=== PATIENT | female | born 1975 | race Caucasian/White ===

== ENCOUNTER 2016-09-12 07:47 | Emergency (ER) | payer OTHER ==
[~2016-09-12] VITALS: Ht 165.1 cm; Wt 146.6 kg
[~2016-09-12 07:47] MED LIST: ALBU1AER9 INH; DPPI150 INJ; EFFSR75 PO; LORA10TA5 PO
[2016-09-12 07:58] VITALS: TEMP 36.6; Ht 165.1 cm; Wt 146.6 kg
[2016-09-12] MEDS ORDERED: KETOROLAC TROMETHAMINE 30 MG/ML VIAL IV STA (08:08)
[2016-09-12] MEDS ORDERED: ONDANSETRON INJ 2 MG/ML 2 ML VIAL IV STA (08:08)
[2016-09-12] MEDS ORDERED: SODIUM CHLORIDE 0.9% 1000ML 1,000 ML IV STA (08:08)
[2016-09-12] MEDS ORDERED: SODIUM CHLORIDE 0.9% 1000ML 2,000 ML IV STA (08:08)
[2016-09-12] MEDS ORDERED: MoRPHine SULFATE 10 MG/ML CARP/VIAL IV STA (08:08)
[2016-09-12 08:43] LABS: BASO % 0.1 %; BASO ABS # 0.01 K/uL (0-0.2); COMPLETE YES; EOS % 1.5 %; HEMATOCRIT 35.4 % (37-47); IG% 0.1 %; LYMPH ABS # 1.94 K/uL (1.2-3.4); MEAN CELL VOLUME 86.3 fL (80-100); MEAN CORPUSCULAR HGB CONC 34.7 g/dl (32-36); MEAN PLATELET VOLUME 10.9 fL (7.4-10.4); MONO % 4.3 %; PLATELET COUNT 210 K/uL (130-400); WHITE BLOOD COUNT 6.68 K/uL (4.8-10.8)
[2016-09-12 08:53] LABS: INR 0.9 (0.9-1.1); PROTHROMBIN TIME (PATIENT) 10.1 SECONDS (9.0-12.0)
[2016-09-12 09:03] LABS: BUN/CREATININE RATIO 17.1 (10-20); CALCIUM 8.3 mg/dl (8.5-10.1); CREATININE 0.7 mg/dl (0.60-1.20); POTASSIUM 3.5 mmol/L (3.5-5.1); PREG INTERNAL NEGATIVE QC NEG CLEAR BACKGROUND; PREG INTERNAL POSITIVE QC POS CONTROL LINE
[2016-09-12 09:06] LABS: ALB/GLOB RATIO 0.9 (0.9-2)
--- NOTE | 2016-09-12 09:30 | DIAGNOSTIC IMAGING REPORT ---
ULTRASOUND OF THE PELVIS CLINICAL HISTORY: Irregular menses. Heavy vaginal bleeding. COMPARISON STUDY: Pelvic CT dated 01/03/2013. TECHNIQUE: Real-time, grayscale, and color flow sonography of the pelvis is performed both transabdominally and endovaginally. Images are reviewed in the transverse and longitudinal planes. Examination is significantly degraded by large body habitus. FINDINGS: Uterus: The uterus is normal in size and echotexture, measuring 8.5 x 4.7 x 5.9 cm. A 10 mm nabothian cyst is identified in the cervix. Fluid is seen in the endocervical canal. Endometrium: The endometrium is normal in appearance, and the endometrial stripe is normal in thickness measuring up to 1.0 cm. Ovaries: The right ovary is normal in appearance, measuring 3.2 x 3.0 x 3.2 cm. The left ovary was not visualized A dominant follicle in the right ovary measures 2.8 cm. Normal Doppler waveforms are shown within the right ovary. Pelvis: There is no free fluid in the cul-de-sac. No concerning adnexal lesion is seen. IMPRESSION: 1. Unremarkable sonographic assessment of the uterus and right ovary. 2. The left ovary was not visualized. 3. There is nonspecific fluid noted in the endocervical canal. Correlation with physical examination is recommended. Electronically signed by: Srinivas Campuzano M.D. 09/12/2016 9:28 AM Dictated Date/Time: 09/12/2016 9:24 AM
[2016-09-12] MEDS ORDERED: NORETHINDRONE ACETATE 5 MG TAB PO STA (10:26)
[2016-09-12] MEDS ORDERED: HYDR-5688 PO (10:32)
[2016-09-12] MEDS ORDERED: NORE5TAB5 PO ×2 (10:32→11:15)
--- NOTE | 2016-09-12 10:37 | EMERGENCY ROOM VISIT NOTE ---
History First contact with patient: 08:06 Chief Complaint: VAGINAL BLEEDING Stated Complaint: VERY HEAVY PERIOD, WOKE UP IN A POOL OF BLOOD History of Present Illness Patient is a Ab2 41-year-old white female patient who presents emergency department for evaluation of heavy, irregular menstrual bleeding x 1 month. Patient has a history of irregular menses. She is status post C-sections 3, and D&C 2 in the past. She reports that she has had problems with irregular menses throughout her life. They have been regular for the last 4 months, but she reports that she got 2 menstrual periods in July, and 3 menstrual periods in August. She started bleeding about 9 days ago. It has progressively gotten worse with more cramping and heavier bleeding. She states that last night she felt like she was in labor, she was doubled over with cramps. The flow has been steadily increasing over the last 4 days. She states that she is saturating a pad in about 15 minutes and has been changing it at least 4 times per hour. She has been taking ibuprofen. She presently rates her cramping 910. She called the on-call concrete gun operator who advised she could either make an appointment in the office or present to the emergency department. She states that she saturated her bed this morning, therefore it prompted her to come to the emergency department. She denies that she could be although denies taking a test. She did feel a little lightheaded last night when the pain was very severe. She is not taking any blood thinning medications. Review of Systems Review of systems as per HPI. All other systems reviewed were negative. 10 systems reviewed. Past Medical/Surgical History Medical Problems: (1) Arm paresthesia, right (2) Asthma (3) Back pain (4) Blood clots (5) Dyspnea (6) Lumbar back pain (7) Morbid Obesity (8) Rash and nonspecific skin eruption (9) Stroke (10) Upper respiratory tract infection Surgical Problems: (1) Appendectomy (2) H/O section (3) History of dilatation and curettage Electronic medical records are reviewed and summarized as above/below. See Problem List. Family History Diabetes mellitus Gallbladder disease Heart disease Hypertension Social History Smoking Status: Never Smoker Alcohol Use: none Drug Use: none Marital Status: Housing Status: lives with family Occupation Status: employed, student Current/Historical Medications Scheduled Norethindrone (Aygestin), 5 MG PO DIRECTED Venlafaxine Hcl (Effexor Extended Rel), 75 MG PO DAILY Scheduled PRN Albuterol (Proair Hfa), 2 PUFFS INH Q6H PRN for SOB/Wheezing Hydrocodone/Acetaminophen 5MG/325MG (Hampton 5MG/325MG), 1-2 TABLETS PO Q4 PRN for Pain Loratadine (Claritin), 10 MG PO DAILY PRN for ALLERGIC REACTION Allergies Coded Allergies: Penicillins (Unverified Allergy, Mild, 09/12/16) Physical Exam Vital Signs Date Time Temp Pulse Resp B/P Pulse Ox O2 Delivery O2 Flow Rate FiO2 09/12/16 10:47 70 18 112/76 98 09/12/16 09:37 57 18 117/68 98 Room Air 09/12/16 09:36 72 09/12/16 07:58 36.6 76 18 148/87 97 Room Air Physical Exam CONSTITUTIONAL: Patient is a morbidly obese 41-year-old white female who is awake and alert and in no acute distress. Her vital signs are stable. EYES: Pupils equal, round, reactive to light and accommodation. EOMs intact without nystagmus. Sclera are anicteric. ENT: Tympanic membranes intact, with normal landmarks. External canals are clear. Oral and nasopharynx are clear. Mucous membranes are moist, no lesions , tongue and gums appear normal. NECK: No bruits auscultated. Supple without lymphadenopathy. No thyromegaly. No meningeal signs. Full active range of motion without discomfort. CARDIOVASCULAR: Regular rate and rhythm, with normal S1 and S2, no murmur or gallop or rub is heard. No carotid bruits auscultated. No JVD. Peripheral pulses easily palpable. RESPIRATORY: Breath sounds equal and clear to auscultation without wheezes, rales, or rhonchi heard. Full and equal chest expansion without accessory muscle use or retractions. ABDOMEN: Soft, obese, slightly tender in the lower abdomen, no guarding, rebound or rigidity. Exam is difficult due to the patient's large body habitus. Bowel sounds normo-active. Pelvic Exam: Genitalia are normal Vagina is clean. Dark blood noted. Cervix is mildly dilated with dark clots, no active bleeding Bimanual exam not performed. INTEGUMENTARY: No lesions or rash, normal skin turgor. LYMPH: No lymphadenopathy. Medical Decision & Procedures ER Provider Diagnostic Interpretation: ULTRASOUND OF THE PELVIS CLINICAL HISTORY: Irregular menses. Heavy vaginal bleeding. COMPARISON STUDY: Pelvic CT dated 01/03/2013. TECHNIQUE: Real-time, grayscale, and color flow sonography of the pelvis is performed both transabdominally and endovaginally. Images are reviewed in the transverse and longitudinal planes. Examination is significantly degraded by large body habitus. FINDINGS: Uterus: The uterus is normal in size and echotexture, measuring 8.5 x 4.7 x 5.9 cm. A 10 mm nabothian cyst is identified in the cervix. Fluid is seen in the endocervical canal. Endometrium: The endometrium is normal in appearance, and the endometrial stripe is normal in thickness measuring up to 1.0 cm. Ovaries: The right ovary is normal in appearance, measuring 3.2 x 3.0 x 3.2 cm. The left ovary was not visualized A dominant follicle in the right ovary measures 2.8 cm. Normal Doppler waveforms are shown within the right ovary. Pelvis: There is no free fluid in the cul-de-sac. No concerning adnexal lesion is seen. IMPRESSION: 1. Unremarkable sonographic assessment of the uterus and right ovary. 2. The left ovary was not visualized. 3. There is nonspecific fluid noted in the endocervical canal. Correlation with physical examination is recommended. Laboratory Results 09/12/16 08:30 Red Blood Count 4.10, Mean Corpuscular Volume 86.3, Mean Corpuscular Hemoglobin 30.0, Mean Corpuscular Hemoglobin Concent 34.7, Mean Platelet Volume 10.9, Neutrophils (%) (Auto) 65.0, Lymphocytes (%) (Auto) 29.0, Monocytes (%) (Auto) 4.3, Eosinophils (%) (Auto) 1.5, Basophils (%) (Auto) 0.1, Neutrophils # (Auto) 4.33, Lymphocytes # (Auto) 1.94, Monocytes # (Auto) 0.29, Eosinophils # (Auto) 0.10, Basophils # (Auto) 0.01 09/12/16 08:30 Test 09/12/16 08:30 09/12/16 10:20 White Blood Count 6.68 K/uL (4.8-10.8) Red Blood Count 4.10 M/uL (4.2-5.4) Hemoglobin 12.3 g/dL (12.0-16.0) Hematocrit 35.4 % (37-47) Mean Corpuscular Volume 86.3 fL (80-100) Mean Corpuscular Hemoglobin 30.0 pg (25-34) Mean Corpuscular Hemoglobin Concent 34.7 g/dl (32-36) Platelet Count 210 K/uL (130-400) Mean Platelet Volume 10.9 fL (7.4-10.4) Neutrophils (%) (Auto) 65.0 % Lymphocytes (%) (Auto) 29.0 % Monocytes (%) (Auto) 4.3 % Eosinophils (%) (Auto) 1.5 % Basophils (%) (Auto) 0.1 % Neutrophils # (Auto) 4.33 K/uL (1.4-6.5) Lymphocytes # (Auto) 1.94 K/uL (1.2-3.4) Monocytes # (Auto) 0.29 K/uL (0.11-0.59) Eosinophils # (Auto) 0.10 K/uL (0-0.5) Basophils # (Auto) 0.01 K/uL (0-0.2) RDW Standard Deviation 42.0 fL (36.4-46.3) RDW Coefficient of Variation 13.4 % (11.5-14.5) Immature Granulocyte % (Auto) 0.1 % Immature Granulocyte # (Auto) 0.01 K/uL (0.00-0.02) Prothrombin Time 10.1 SECONDS (9.0-12.0) Prothromb Time International Ratio 0.9 (0.9-1.1) Activated Partial Thromboplast Time 24.8 SECONDS (21.0-31.0) Partial Thromboplastin Ratio 1.0 Anion Gap 8.0 mmol/L (3-11) Est Creatinine Clear Calc Drug Dose 153.4 ml/min Estimated GFR () 123.9 Estimated GFR (Non- 106.9 BUN/Creatinine Ratio 17.1 (10-20) Calcium Level 8.3 mg/dl (8.5-10.1) Total Bilirubin 0.4 mg/dl (0.2-1) Aspartate Amino Transf (AST/SGOT) 24 U/L (15-37) Alanine Aminotransferase (ALT/SGPT) 27 U/L (12-78) Alkaline Phosphatase 81 U/L (45-117) Total Protein 6.9 gm/dl (6.4-8.2) Albumin 3.3 gm/dl (3.4-5.0) Globulin 3.6 gm/dl (2.5-4.0) Albumin/Globulin Ratio 0.9 (0.9-2) Thyroid Stimulating Hormone (TSH) 2.690 uIu/ml (0.300-4.500) Human Chorionic Gonadotropin, Qual NEG (NEG) Urine Color YELLOW Urine Appearance CLEAR (CLEAR) Urine pH 6.5 (4.5-7.5) Urine Specific Rowley 1.008 (1.000-1.030) Urine Protein NEG (NEG) Urine Glucose (UA) NEG (NEG) Urine Ketones NEG (NEG) Urine Occult Blood 3+ (NEG) Urine Nitrite NEG (NEG) Urine Bilirubin NEG (NEG) Urine Urobilinogen NEG (NEG) Urine Leukocyte Esterase TRACE (NEG) Urine WBC (Auto) 1-5 /hpf (0-5) Urine RBC (Auto) 5-10 /hpf (0-4) Urine Hyaline Casts (Auto) 1-5 /lpf (0-5) Urine Epithelial Cells (Auto) >30 /lpf (0-5) Urine Bacteria (Auto) NEG (NEG) Medications Administered Medications (Trade) Dose Ordered Sig/Saritha Route Start Time Stop Time Status Last Admin Dose Admin Sodium Chloride 2,000 ml @ 999 mls/hr Q2H1M STAT IV 09/12/16 08:08 09/12/16 10:08 DC 09/12/16 08:34 999 MLS/HR Sodium Chloride (Nss 1000ml) 1,000 ml @ 250 mls/hr Q4H STAT IV 09/12/16 08:08 09/12/16 11:40 DC 09/12/16 08:34 250 MLS/HR Ketorolac Tromethamine (Toradol Inj) 30 mg NOW STAT IV 09/12/16 08:08 09/12/16 08:21 DC 09/12/16 08:34 30 MG Ondansetron HCl (Zofran Inj) 4 mg NOW STAT IV 09/12/16 08:08 09/12/16 08:21 DC 09/12/16 08:34 4 MG Morphine Sulfate (MoRPHine SULFATE INJ) 6 mg NOW STAT IV 09/12/16 08:08 09/12/16 08:21 DC 09/12/16 08:34 6 MG Norethindrone Acetate (Aygestin Tab) 5 mg NOW STAT PO 09/12/16 10:26 09/12/16 10:27 DC 09/12/16 10:40 5 MG ED Course The patient was seen and assessed as above. Her old records were reviewed. IV access was obtained and laboratory studies were collected. She was hydrated with normal saline solution and medicated with Toradol, Zofran and morphine IV with good relief of her discomfort. Laboratory studies were collected including CBC with differential, coags, CMP, TSH, serum hCG and a type and screen. iStat was ordered, but failed to run. Pelvic ultrasound was ordered. Laboratory studies were largely unremarkable. H&H is stable at 12.3 and 35.4. Platelet count 210,000. Coags are normal. Electrolytes and liver functions are without correctable abnormality. TSH indicates a euthyroid state. test was negative. Urinalysis is indicative of contamination from her vaginal bleeding. No indicators for infection. Her blood type is O+. Pelvic ultrasound demonstrated an unremarkable uterus, with an endometrial stripe measuring up to 1 cm. Right ovary was visualized as normal. Left ovary was not demonstrated. There were no concerning adnexal lesions. All laboratory and diagnostic imaging studies were reviewed with attending physician. I did discuss the patient with Dr. Rutherford, who was inclusion intern for [facility]. She was in agreement that the patient would be a good candidate for Aygestin taper. Patient was given her first dose of 5 mg orally in the emergency department. The Aygestin taper was discussed with her, and bleeding precautions were outlined. She was prescribed Hampton for pain. She will continue the ibuprofen. She was encouraged to call the [facility] office this afternoon to make a follow-up appointment. She otherwise remained hemodynamically stable while in the emergency department. She rated her discomfort a 2/10 at discharge. Differential includes: DUB, coagulopathy, mass or malignancy, PID, mittelschmerz , dysmenorrhea, ovarian torsion, ruptured ovarian cyst, ectopic , , spontaneous , among others. Medical Decision See ED Course. Impression Primary Impression: Abnormal vaginal bleeding Departure Information Prescriptions Norethindrone (Aygestin) 5 Mg Tab 5 MG PO DIRECTED, #45 TAB 1 tablet po qid x 3 days, 1 tablet po tid x 4 days, 1 tablet po bid x 7 days, 1 tablet daily x 7 days. Prov: Prabha Ray PA 09/12/16 Hydrocodone/Acetaminophen 5MG/325MG (Hampton 5MG/325MG) Tab 1-2 TABLETS PO Q4 Y for Pain, #20 TAB For Initial Treatment Prov: Prabha Ray PA 09/12/16 Referrals Luis Miguel Funes M.D. (PCP) Rin Rutherford M.D. Patient Instructions A Signature Page, My [facility] Additional Instructions DO NOT drive, drink alcohol, operate machinery, or perform dangerous activities today. You were given medications in the ER that can affect your ability to safely function or operate a vehicle. Hydrocodone/Acetaminophen (Hampton) 5/325 mg: Take 1-2 pills every four hours for breakthrough pain. Avoid alcohol, operating machinery or dangerous equipment, working on ladders or roofs, DRIVING, or situations where being under the influence may be dangerous. It is recommended to use an [id number] stool softener such as Colace, 100mg twice daily while taking this medication to avoid constipation. Aygestin 5mg : Take one tablet by mouth 4 times daily for 3 days, 1 tablet by mouth 3 times daily for 4 days, one tablet by mouth twice daily for 7 days, then 1 tablet by mouth daily for 7 days. Bleeding should stop after 24-48 hours. Bleeding will resume 48 hours after stopping the medication but should be controlled. Ibuprofen(Motrin, Advil) may be used for fever or pain. Use 600mg every six hours as needed. Take with food. Avoid using more than 2400mg in a 24 hour period. Do not use 2400mg per day for more than three consecutive days without physician direction. Prolonged inappropriate use can lead to stomach upset or ulcers. (AND/OR) Acetaminophen(Tylenol) may be used for fever or pain. Use 1000mg every six hours as needed. Avoid using more than 3000mg in a 24 hour period. Rest and avoid any heavy lifting or strenuous activity. Drink plenty of fluids. Diet as tolerated. Follow up with [facility]. Call to make an appointment. Return to the ED for worsening pain, heavier bleeding (soaking a pad in an hour or less, passing clots larger than your fist), lightheadedness, dizziness, passing out, worsening of her condition or as needed.
[2016-09-12 10:47] VITALS: BP 112/76; PULSE 70; O2SAT 98
[2016-09-12 10:53] LABS: MANUAL MICROSCOPIC REQUIRED? NO; REVIEW REQ? NO; URINE APPEARANCE CLEAR (CLEAR); URINE BILIRUBIN NEG (NEG); URINE COLOR YELLOW; URINE EPITHELIAL CELL AUTO >30 /lpf (0-5); URINE NITRITE NEG (NEG); URINE PH 6.5 (4.5-7.5); URINE SPECIFIC GRAVITY 1.008 (1.000-1.030); UROBILINOGEN NEG (NEG)
[2016-12-08] MEDS ORDERED: ASPI-391 PO (15:16)
[2016-12-15] MEDS ORDERED: MTR600X PO (12:41)
[2016-12-15] MEDS ORDERED: OXYC-57 PO (12:41)
== END 2016-09-12 10:49 | disposition home or self-care (01) ==
LOC: C.EDB 07:51
DX: N93.9 Abnormal uterine and vaginal bleeding, unspecified (principal); J45.909 Unspecified asthma, uncomplicated; M54.5 Low back pain; E66.01 Morbid (severe) obesity due to excess calories; Z86.73 Personal history of transient ischemic attack (TIA), and cerebral infarction without residual deficits; Z83.3 Family history of diabetes mellitus; Z83.79 Family history of other diseases of the digestive system; Z82.49 Family history of ischemic heart disease and other diseases of the circulatory system; Z79.899 Other long term (current) drug therapy

== ENCOUNTER 2016-10-24 11:43 | Emergency (ER) | payer OTHER ==
[~2016-10-24] VITALS: Ht 154.9 cm; Wt 146.6 kg
[~2016-10-24 11:43] MED LIST changes: -DPPI150 INJ; +HYDR-5688 PO; +NORE5TAB5 PO
[2016-10-24 11:51] VITALS: TEMP 37.1; Ht 154.9 cm; Wt 146.6 kg
[2016-10-24] MEDS ORDERED: DPPI400 INJ (13:06)
[2016-10-24] MEDS ORDERED: METHYLPREDNISOLONE 125 MG VIAL IV STA (13:06)
[2016-10-24] MEDS ORDERED: ALBUT/IPRATROP 3MG/0.5MG NEB 3 ML VIAL INH STA ×2 (13:06→15:33)
[2016-10-24] MEDS ORDERED: PRED10TA PO (13:06)
--- NOTE | 2016-10-24 13:37 | EMERGENCY ROOM VISIT NOTE ---
History First contact with patient: 12:52 Chief Complaint: REFERRED BY DOCTOR Stated Complaint: TROUBLE BREATHING,TIGHT IN CHEST,COUGH History of Present Illness The patient is a 41 year old female who presents to the Emergency Room with complaints of respiratory symptoms which started 2 weeks ago. The patient reports that she has had a severe cough for the past 2 weeks and has developed associated shortness of breath with exertion over the past few days. The patient saw her primary care provider 2 days ago and was told that her chest sounded tight and was given a prescription for prednisone. She called the office today because she was not feeling better and states that the nurse and her here. She does have a history of asthma but states she does not have frequent exacerbations. She has been using her inhalers at home without relief. The patient notes she also has had diarrhea after eating for the past 2 weeks. She denies any nausea, vomiting, chest pain, abdominal pain, fevers, neck pain, headache or sore throat. She did not receive a flu vaccine this year. Review of Systems A complete 10-point Review of Systems was discussed with the patient, with pertinent positives and negatives listed in the History of Present Illness. All remaining Review of Systems questions can be considered negative unless otherwise specified. Past Medical/Surgical History Medical Problems: (1) Arm paresthesia, right (2) Asthma (3) Back pain (4) Blood clots (5) Dyspnea (6) Lumbar back pain (7) Morbid Obesity (8) Rash and nonspecific skin eruption (9) Stroke (10) Upper respiratory tract infection Surgical Problems: (1) Appendectomy (2) H/O section (3) History of dilatation and curettage Family History Diabetes mellitus Gallbladder disease Heart disease Hypertension Social History Smoking Status: Never Smoker Alcohol Use: none Drug Use: none Marital Status: Housing Status: lives with family Occupation Status: employed, student Current/Historical Medications Scheduled Azithromycin (Zithromax Z-Michael), 0 PO UD Medroxyprogesterone Acetate (Depo-Provera), 1 DOSE INJ [id number] Prednisone (Prednisone), 0 PO UD Venlafaxine Hcl (Effexor Extended Rel), 75 MG PO DAILY Scheduled PRN Albuterol (Proair Hfa), 2 PUFFS INH Q6H PRN for SOB/Wheezing Hydrocodone/Acetaminophen 5MG/325MG (Kaleva 5MG/325MG), 1-2 TABLETS PO Q4 PRN for Pain Loratadine (Claritin), 10 MG PO DAILY PRN for ALLERGIC REACTION Allergies Coded Allergies: Penicillins (Unverified Allergy, Mild, 10/24/16) Physical Exam Vital Signs Date Time Temp Pulse Resp B/P Pulse Ox O2 Delivery O2 Flow Rate FiO2 10/24/16 16:52 89 20 114/71 100 Room Air 10/24/16 14:28 89 20 100/70 100 Room Air 10/24/16 13:37 77 20 127/73 100 Nebulizer 5.0 10/24/16 11:51 37.1 74 16 143/92 100 Room Air Physical Exam VITALS: Vitals are noted on the nurse's note and reviewed by myself. Vital signs stable. GENERAL: This is a 41-year-old female, in no acute distress, nondiaphoretic, well-developed well-nourished. SKIN: Capillary reflex less than 2 seconds. HEENT: Normocephalic. PERRLA. EOMI. Nares patent. Mucous membranes moist. Neck is supple without nuchal rigidity. HEART: Regular rate and rhythm without murmurs gallops or rubs. LUNGS: Mild wheezes in bilateral lung egan. Otherwise clear to auscultation. No retractions or accessory muscle use. ABDOMEN: Positive bowel sounds x 4. Soft, nontender to palpation. NEURO: Patient was alert and oriented to person place and time. Medical Decision & Procedures ER Provider Diagnostic Interpretation: CHEST 2 VIEWS ROUTINE IMPRESSION: 1. No acute findings. 2. Diminished lung volumes, unchanged since prior exam. 3. Stable cardiomegaly. CT ANGIOGRAPHY OF THE CHEST, PULMONARY EMBOLUS PROTOCOL IMPRESSION: 1. No central pulmonary emboli identified. The remainder of the pulmonary arteries are inadequately assessed due to quantum mottle artifact related to body habitus. Consideration might be given to further evaluation with lower extremity venous Doppler. 2. Moderate cardiomegaly. 3. No acute intrathoracic findings. 4. Suspected cholelithiasis and fatty infiltration of the liver. BILATERAL LOWER EXTREMITY VENOUS DOPPLER FINDINGS: There is normal compressibility, flow, and augmentation within the bilateral lower extremity deep venous systems. IMPRESSION: No DVT within the right or left lower extremity. Laboratory Results 10/24/16 13:30 Red Blood Count 4.18, Mean Corpuscular Volume 86.8, Mean Corpuscular Hemoglobin 29.4, Mean Corpuscular Hemoglobin Concent 33.9, Mean Platelet Volume 11.3, Neutrophils (%) (Auto) 71.7, Lymphocytes (%) (Auto) 23.7, Monocytes (%) (Auto) 3.9, Eosinophils (%) (Auto) 0.1, Basophils (%) (Auto) 0.1, Neutrophils # (Auto) 10.40, Lymphocytes # (Auto) 3.44, Monocytes # (Auto) 0.56, Eosinophils # (Auto) 0.01, Basophils # (Auto) 0.02 10/24/16 13:30 Test 10/24/16 13:30 10/24/16 13:35 White Blood Count 14.50 K/uL (4.8-10.8) Red Blood Count 4.18 M/uL (4.2-5.4) Hemoglobin 12.3 g/dL (12.0-16.0) Hematocrit 36.3 % (37-47) Mean Corpuscular Volume 86.8 fL (80-100) Mean Corpuscular Hemoglobin 29.4 pg (25-34) Mean Corpuscular Hemoglobin Concent 33.9 g/dl (32-36) Platelet Count 249 K/uL (130-400) Mean Platelet Volume 11.3 fL (7.4-10.4) Neutrophils (%) (Auto) 71.7 % Lymphocytes (%) (Auto) 23.7 % Monocytes (%) (Auto) 3.9 % Eosinophils (%) (Auto) 0.1 % Basophils (%) (Auto) 0.1 % Neutrophils # (Auto) 10.40 K/uL (1.4-6.5) Lymphocytes # (Auto) 3.44 K/uL (1.2-3.4) Monocytes # (Auto) 0.56 K/uL (0.11-0.59) Eosinophils # (Auto) 0.01 K/uL (0-0.5) Basophils # (Auto) 0.02 K/uL (0-0.2) RDW Standard Deviation 42.4 fL (36.4-46.3) RDW Coefficient of Variation 13.3 % (11.5-14.5) Immature Granulocyte % (Auto) 0.5 % Immature Granulocyte # (Auto) 0.07 K/uL (0.00-0.02) D-Dimer 1230 ug/L FEU (0-500) Anion Gap 8.0 mmol/L (3-11) Est Creatinine Clear Calc Drug Dose 120.2 ml/min Estimated GFR () 99.4 Estimated GFR (Non- 85.7 BUN/Creatinine Ratio 16.0 (10-20) Calcium Level 8.3 mg/dl (8.5-10.1) Total Bilirubin 0.4 mg/dl (0.2-1) Aspartate Amino Transf (AST/SGOT) 10 U/L (15-37) Alanine Aminotransferase (ALT/SGPT) 25 U/L (12-78) Alkaline Phosphatase 68 U/L (45-117) Total Protein 7.3 gm/dl (6.4-8.2) Albumin 3.5 gm/dl (3.4-5.0) Globulin 3.8 gm/dl (2.5-4.0) Albumin/Globulin Ratio 0.9 (0.9-2) Influenza Type A Antigen Neg for Influ A (NEG) Influenza Type B Antigen Neg for Influ B (NEG) Medications Administered Medications (Trade) Dose Ordered Sig/Saritha Route Start Time Stop Time Status Last Admin Dose Admin Methylprednisolone Sodium Succinate (Solu-Medrol IV) 125 mg NOW STAT IV 10/24/16 13:06 10/24/16 13:08 DC 10/24/16 13:30 125 MG Albuterol/ Ipratropium (Duoneb) 3 ml NOW STAT INH 10/24/16 13:06 10/24/16 13:09 DC 10/24/16 13:29 3 ML Albuterol/ Ipratropium (Duoneb) 3 ml NOW STAT INH 10/24/16 15:33 10/24/16 15:35 DC 10/24/16 16:51 3 ML Medical Decision Differential diagnosis includes pneumonia, upper respiratory infection, asthma exacerbation, pulmonary embolism, among others. The patient was evaluated as above. Labs were drawn and IV access was obtained. Imaging studies were performed and read by radiology as above. The patient was medicated with a DuoNeb treatment and 125 mg Solu-Medrol IV. She did require an additional DuoNeb treatment. The patient was reassessed multiple times during their stay in the emergency department and remained in stable condition. The patient is a 41-year-old female who presents today complaining of cough and shortness of breath. Labs revealed leukocytosis consistent with mild infection or her recent steroid use. No concerning anemia or electrolyte abnormalities. D-dimer was found to be elevated. CT of the chest for PE was performed. This did not show any central pulmonary embolism, but was not an adequate study. Ultrasound of the bilateral lower extremities was performed to rule out DVT and was negative for DVT within either leg. The patient did improve with DuoNeb treatment. Her oxygen saturations remained 99-100% on room air. The patient will be placed on a Z-Michael. She will continue the prednisone as prescribed. She should follow-up closely with her primary care provider. Based on the patient's presentation, lab results, and imaging studies, I feel the patient is stable for outpatient treatment. The patient's case was reviewed with Dr. Raymundo, ED attending physician, who agreed with my assessment and treatment plan. Discharge instructions were reviewed with the patient. The patient verbalized understanding of my assessment and treatment plan and was discharged home in good condition. Impression Primary Impression: Upper respiratory tract infection Departure Information Dispostion Home / Self-Care Condition GOOD Prescriptions Azithromycin (ZITHROMAX Z-MICHAEL) 250 Mg Tab 0 PO UD, #1 PKT 2 TABS DAY 1, THEN 1 TAB DAILY FOR 4 DAYS Prov: Misa Espinosa ., CLARKE 10/24/16 Referrals Luis Miguel Funes M.D. (PCP) Patient Instructions My [facility] Additional Instructions You were prescribed Zithromax to be taken as prescribed. This is an antibiotic. All antibiotics have the potential to cause diarrhea. Stop this medication and contact a medical provider if you were to develop any significant adverse side effects including: wheezing, shortness of breath, passing out, vomiting, or a diffuse rash. Always take antibiotics as directed and COMPLETE the ENTIRE course regardless of the improvement of your symptoms. Continue the prednisone as prescribed. Use your inhalers at home for any shortness of breath. Follow-up with your primary care provider in 2-3 days for further evaluation of your symptoms. Return to the emergency department with worsening shortness of breath, chest pain, high fevers or any other new/concerning symptoms. Problem Qualifiers Primary Impression: Upper respiratory tract infection URI type: unspecified viral URI Qualified Codes: J06.9 - Acute upper respiratory infection, unspecified; B97.89 - Other viral agents as the cause of diseases classified elsewhere
[2016-10-24 13:51] LABS: BASO % 0.1 %; BASO ABS # 0.02 K/uL (0-0.2); COMPLETE YES; EOS % 0.1 %; HEMATOCRIT 36.3 % (37-47); IG% 0.5 %; LYMPH % 23.7 %; LYMPH ABS # 3.44 K/uL (1.2-3.4); MEAN CELL VOLUME 86.8 fL (80-100); MEAN CORPUSCULAR HEMOGLOBIN 29.4 pg (25-34); MEAN CORPUSCULAR HGB CONC 33.9 g/dl (32-36); MEAN PLATELET VOLUME 11.3 fL (7.4-10.4); MONO % 3.9 %; NEUT % 71.7 %; PLATELET COUNT 249 K/uL (130-400); RED BLOOD COUNT 4.18 M/uL (4.2-5.4)
--- NOTE | 2016-10-24 14:08 | DIAGNOSTIC IMAGING REPORT ---
CHEST 2 VIEWS ROUTINE CLINICAL HISTORY: Cough. Shortness of breath. COMPARISON STUDY: Chest radiograph December 28, 2014. FINDINGS: No pneumothorax or pleural effusion is present. Lung volumes are diminished. This is unchanged. Cardiomegaly is unchanged. There is no evidence of pulmonary edema. IMPRESSION: 1. No acute findings. 2. Diminished lung volumes, unchanged since prior exam. 3. Stable cardiomegaly. Electronically signed by: Moises Arreola M.D. 10/24/2016 2:06 PM Dictated Date/Time: 10/24/2016 2:06 PM
[2016-10-24 14:09] LABS: CALCIUM 8.3 mg/dl (8.5-10.1); CREATININE 0.84 mg/dl (0.60-1.20); POTASSIUM 3.2 mmol/L (3.5-5.1)
[2016-10-24 14:12] LABS: ALB/GLOB RATIO 0.9 (0.9-2)
[2016-10-24] MEDS ORDERED: OPTIRAY 320 IV PRN (14:15)
--- NOTE | 2016-10-24 15:28 | DIAGNOSTIC IMAGING REPORT ---
CT ANGIOGRAPHY OF THE CHEST, PULMONARY EMBOLUS PROTOCOL CLINICAL HISTORY: Shortness of breath, difficulty breathing and elevated d-dimer. Cough. COMPARISON STUDY: Chest CT December 28, 2014. TECHNIQUE: Following IV administration of 109 mL of Optiray-320, helical axial images of the chest were obtained utilizing the pulmonary embolus protocol. Maximal intensity projections and sagittal and coronal reformats were viewed on an independent 3D workstation. IV contrast was administered without complication. CT DOSE: 584.16 mGycm FINDINGS: This exam is significantly compromised by quantum mottle artifact. No central pulmonary embolus is identified. The remainder of the pulmonary arteries are inadequately assessed on this examination. The heart is moderately enlarged. There is no pericardial effusion. No enlarged thoracic lymph nodes are present. Central airways are patent. No consolidation is present. There is no pneumothorax or pleural effusion. The bony thorax is unremarkable. There are suspected gallstones within the gallbladder. There is probable fatty infiltration of the liver. Spleen is at the upper limits of normal for size. IMPRESSION: 1. No central pulmonary emboli identified. The remainder of the pulmonary arteries are inadequately assessed due to quantum mottle artifact related to body habitus. Consideration might be given to further evaluation with lower extremity venous Doppler. 2. Moderate cardiomegaly. 3. No acute intrathoracic findings. 4. Suspected cholelithiasis and fatty infiltration of the liver. Electronically signed by: Moises Arreola M.D. 10/24/2016 3:27 PM Dictated Date/Time: 10/24/2016 3:16 PM
[2016-10-24] MEDS ORDERED: AZITTAB PO (16:15)
--- NOTE | 2016-10-24 16:46 | DIAGNOSTIC IMAGING REPORT ---
BILATERAL LOWER EXTREMITY VENOUS DOPPLER HISTORY: Dyspnea sob, ct chest inadequate assessment COMPARISON STUDY: None. FINDINGS: There is normal compressibility, flow, and augmentation within the bilateral lower extremity deep venous systems. IMPRESSION: No DVT within the right or left lower extremity. Electronically signed by: Khurram Suero M.D. 10/24/2016 4:45 PM Dictated Date/Time: 10/24/2016 4:45 PM
[2016-10-24 16:52] VITALS: BP 114/71; PULSE 89; O2SAT 100
[2016-12-08] MEDS ORDERED: ASPI-391 PO (15:16)
[2016-12-15] MEDS ORDERED: OXYC-57 PO (12:41)
[2016-12-15] MEDS ORDERED: MTR600X PO (12:41)
== END 2016-10-24 17:09 | disposition home or self-care (01) ==
LOC: C.EDB 11:44
DX: J06.9 Acute upper respiratory infection, unspecified (principal); J45.909 Unspecified asthma, uncomplicated; Z86.73 Personal history of transient ischemic attack (TIA), and cerebral infarction without residual deficits; Z79.899 Other long term (current) drug therapy; Z88.0 Allergy status to penicillin; Z83.3 Family history of diabetes mellitus; Z83.79 Family history of other diseases of the digestive system; Z82.49 Family history of ischemic heart disease and other diseases of the circulatory system

== ENCOUNTER → 2016-10-31 | Outpatient (CLI) | payer OTHER ==
[~2016-10-31] MED LIST changes: +ASPI-391 PO; +AZIT500T26 PO; +AZITTAB PO; +BENZ1CAP90 PO; +DPPI400 INJ; +MTR600X PO; -NORE5TAB5 PO; +OXYC-57 PO; +PRED10TA PO; +VNTHFA/IN INH
[2016-10-31 12:28] LABS: BASO % 0.3 %; BASO ABS # 0.04 K/uL (0-0.2); COMPLETE YES; EOS % 1.2 %; HEMATOCRIT 40.8 % (37-47); IG% 0.8 %; LYMPH % 20.4 %; LYMPH ABS # 3.02 K/uL (1.2-3.4); MEAN CELL VOLUME 88.1 fL (80-100); MEAN CORPUSCULAR HEMOGLOBIN 29.6 pg (25-34); MEAN CORPUSCULAR HGB CONC 33.6 g/dl (32-36); MEAN PLATELET VOLUME 11.6 fL (7.4-10.4); MONO % 4.2 %; NEUT % 73.1 %; PLATELET COUNT 256 K/uL (130-400); RED BLOOD COUNT 4.63 M/uL (4.2-5.4); WHITE BLOOD COUNT 14.81 K/uL (4.8-10.8)
[2016-10-31 12:47] LABS: ESTIMATED AVERAGE GLUCOSE 123 mg/dl; HA1C FLAG Normal (Normal)
[2016-10-31 12:55] LABS: ALT/SGPT 24 U/L (12-78); AST/SGOT 7 U/L (15-37); BLOOD UREA NITROGEN 15 mg/dl (7-18); BUN/CREATININE RATIO 17.4 (10-20); CALCIUM 8.4 mg/dl (8.5-10.1); CARBON DIOXIDE 29 mmol/L (21-32); CHLORIDE 103 mmol/L (98-107); CREATININE 0.85 mg/dl (0.60-1.20); GLUCOSE 129 mg/dl (70-99); POTASSIUM 3.7 mmol/L (3.5-5.1); SODIUM 140 mmol/L (136-145)
[2016-10-31 12:58] LABS: ALB/GLOB RATIO 0.9 (0.9-2); ALKALINE PHOSPHATASE 81 U/L (45-117); CHOLESTEROL 128 mg/dl (0-200); CHOLESTEROL/HDL RATIO 2.9; HDL CHOLESTEROL 44 mg/dl; LDL CHOLESTEROL CALCULATED 70 mg/dl; TRIGLYCERIDES 70 mg/dl (0-150); VERY LOW DENSITY LIPOPROT CALC 14 mg/dl
== END | disposition home or self-care (01) ==
LOC: C.LABBFT 08:38
PROVIDERS: ATTEND Internal Medicine
DX: R73.9 Hyperglycemia, unspecified (principal)

== ENCOUNTER → 2016-11-04 | Outpatient (CLI) | payer OTHER ==
[2016-11-04 17:44] LABS: URINE APPEARANCE CLEAR (CLEAR); URINE BILIRUBIN NEG (NEG); URINE COLOR YELLOW; URINE EPITHELIAL CELL AUTO >30 /lpf (0-5); URINE NITRITE POS (NEG); URINE SPECIFIC GRAVITY 1.025 (1.000-1.030); UROBILINOGEN NEG (NEG); ZZUR CULT IF INDIC CLEAN CATCH YES
[2016-11-04 17:47] LABS: MANUAL MICROSCOPIC REQUIRED? NO; REVIEW REQ? NO
== END | disposition home or self-care (01) ==
LOC: C.LABBFT 15:38
PROVIDERS: ATTEND Internal Medicine
DX: R39.9 Unspecified symptoms and signs involving the genitourinary system (principal)

== ENCOUNTER → 2016-11-11 | Outpatient (CLI) | payer OTHER ==
[~2016-11-11] MED LIST changes: -AZITTAB PO
--- NOTE | 2016-11-11 15:06 | DIAGNOSTIC IMAGING REPORT ---
Thyroid ultrasonography CLINICAL HISTORY: R94.6 Abnormal thyroid exam COMPARISON STUDY: No previous studies for comparison. FINDINGS: The right lobe of the thyroid measures 43 x 20 5 to 16 mm. The left lobe measures 42 x 21 x 17 mm. There is a circumscribed hypoechoic 5 mm upper pole right lobe thyroid nodule. No thyroid nodules are visualized and the left. IMPRESSION: 5 mm circumscribed upper pole right lobe thyroid nodule. There are no thyroid nodules that meet size or morphologic biopsy criteria. Electronically signed by: Ad Helm M.D. 11/11/2016 3:04 PM Dictated Date/Time: 11/11/2016 3:03 PM
== END | disposition home or self-care (01) ==
LOC: C.ULTR 14:43
PROVIDERS: ATTEND Internal Medicine
DX: R94.6 Abnormal results of thyroid function studies (principal); E04.1 Nontoxic single thyroid nodule

== ENCOUNTER → 2016-11-13 | Outpatient (CLI) | payer OTHER ==
--- NOTE | 2016-11-13 13:16 | MAMMOGRAPHY REPORT ---
BILATERAL FIRST EVER DIGITAL SCREENING MAMMOGRAM WITH CAD: 11/13/2016 CLINICAL HISTORY: Routine screening. Baseline exam. TECHNIQUE: Current study was also evaluated with a Computer Aided Detection (CAD) system. Bilatera l CC and MLO and left X CCL views were obtained. COMPARISON: No prior exams were available for comparison. BREAST COMPOSITION: The tissue of both breasts is almost entirely fatty. FINDINGS: No suspicious masses, calcifications, or areas of architectural distortion are noted in ei ther breast. IMPRESSION: ACR BI-RADS CATEGORY 1: NEGATIVE There is no mammographic evidence of malignancy. A 1 year screening mammogram is recommended. The p atient will receive written notification of the results. Approximately 10% of breast cancers are not detected with mammography. A negative mammographic repor t should not delay biopsy if a clinically suggestive mass is present. Rosy Martínez M.D. ah/:11/13/2016 12:24:46 Testing Engineer: Leela Vela RT(R)(Ryan)(BD), [facility] letter sent: Normal 1/2 BI-RADS Code: ACR BI-RADS Category 1: Negative
== END | disposition home or self-care (01) ==
LOC: C.MAMM 11:38
PROVIDERS: ATTEND Internal Medicine
DX: Z12.31 Encounter for screening mammogram for malignant neoplasm of breast (principal)

== ENCOUNTER 2016-12-15 07:46 | Observation (INO) | payer OTHER ==
[2016-12-08 15:17] VITALS: BMI 64.0
[2016-12-08 15:27] LABS: BASO % 0.3 %; BASO ABS # 0.02 K/uL (0-0.2); COMPLETE YES; EOS % 0.9 %; HEMATOCRIT 33.6 % (37-47); IG% 0.5 %; LYMPH % 30.9 %; LYMPH ABS # 2.31 K/uL (1.2-3.4); MEAN CELL VOLUME 85.5 fL (80-100); MEAN CORPUSCULAR HEMOGLOBIN 29.3 pg (25-34); MEAN CORPUSCULAR HGB CONC 34.2 g/dl (32-36); MEAN PLATELET VOLUME 11.1 fL (7.4-10.4); MONO % 4.8 %; NEUT % 62.6 %; PLATELET COUNT 212 K/uL (130-400); RED BLOOD COUNT 3.93 M/uL (4.2-5.4); WHITE BLOOD COUNT 7.47 K/uL (4.8-10.8)
--- NOTE | 2016-12-08 15:55 | PAT Medication Instructions ---
Service Date Dec 08, 2016. Current Home Medication List Albuterol (Proair Hfa), 2 PUFFS INH Q6H PRN for SOB/Wheezing Yslenvl-Ytyprrjvxpkwn-Gkidnavu (Excedrin Extra Strength), 2 MG PEG PRN Loratadine (Claritin), 10 MG PO DAILY PRN for ALLERGIC REACTION Venlafaxine Hcl (Effexor Extended Rel), 75 MG PO HS Medication Instructions For Your Scheduled Surgery - Hold the following medications 7 days prior to surgery: Ejrxszc-Ewuutudknkvow-Inmhttzv (Excedrin Extra Strength), 2 MG PEG PRN - Hold the following medications the morning of surgery: Loratadine (Claritin), 10 MG PO DAILY PRN for ALLERGIC REACTION - Take the following medications the morning of surgery with a sip of water: Albuterol (Proair Hfa), 2 PUFFS INH Q6H PRN for SOB/Wheezing (bring with you to hospital on day of surgery) - Take the following medications as scheduled the night before surgery: Venlafaxine Hcl (Effexor Extended Rel), 75 MG PO HS Albuterol (Proair Hfa), 2 PUFFS INH Q6H PRN for SOB/Wheezing If you have any questions please call us at [phone] or [phone] ( [place]) or [phone]
[2016-12-15] VITALS (9 sets, daily range): BP systolic 93–137; BP diastolic 53–76; PULSE 71–95; TEMP 36.5–36.9; O2SAT 95–99; Ht 152.4 cm; Wt 148.3 kg
[~2016-12-15] VITALS: Ht 152.4 cm; Wt 148.3 kg
[~2016-12-15 07:46] MED LIST changes: -AZIT500T26 PO; -BENZ1CAP90 PO; +CIPROFLOXACIN / D5W 400 MG IV SCH; +CLINDAMYCIN 600 MG/54 ML D5W 50 ML IV SCH; -DPPI400 INJ; -HYDR-5688 PO; +LACTATED RINGER'S 1000ML 1,000 ML IV SCH; -MTR600X PO; -OXYC-57 PO; -PRED10TA PO; -VNTHFA/IN INH
--- NOTE | 2016-12-15 08:28 | History & Physical Bridge Note ---
H&P Re-Evaluation Bridge Note: I have examined the patient, reviewed the History & Physical and in the interval since the performance of the History & Physical I have noted the following changes of clinical significance: Reviewed increased surgical risks with BMI>60 of conversion and internal organ injury. SHANELLE
[2016-12-15] MEDS ORDERED: ALBUTEROL 0.083% NEBU SOLN 3 ML VIAL INH STA (08:40)
[2016-12-15] MEDS ORDERED: ATROPINE SULFATE 0.1 MG/ML 5ML SYR IV PRN (08:45)
[2016-12-15] MEDS ORDERED: SCOPOLAMINE 1.5 MG TDSY TD ONE ×2 (08:45→08:49)
[2016-12-15] MEDS ORDERED: ONDANSETRON INJ 2 MG/ML 2 ML VIAL IV PRN ×2 (08:45→12:45)
[2016-12-15] MEDS ORDERED: EpHEDrine SULFATE INJ 50 MG/ML AMP IV PRN (08:45)
[2016-12-15] MEDS ORDERED: FENTANYL CITRATE INJ 50 MCG/1 ML 2 ML VIAL ONE ×2 (09:18→11:20)
[2016-12-15] MEDS ORDERED: MIDAZOLAM HCL 1 MG/ML 2ML VIAL ONE (09:18)
[2016-12-15] MEDS ORDERED: METHYLENE BLUE 0.5% 10 ML VIAL ONE (09:21)
[2016-12-15] MEDS ORDERED: BUPIVACAINE 0.5 % 5 MG/1 ML MPF 30ML VIAL ONE (09:22)
[2016-12-15] MEDS ORDERED: ROCURONIUM BROMIDE 10 MG/ML 5 ML VIAL ONE ×2 (11:00)
[2016-12-15] MEDS ORDERED: LIDOCAINE HCL 2% 2 ML VIAL (20MG/ML) ONE (11:00)
[2016-12-15] MEDS ORDERED: PROPOFOL IV EMULSION 10 MG/ML 20 ML VIAL IV ONE (11:00)
[2016-12-15] MEDS ORDERED: NEOSTIGMINE METHYLSULFATE 5 MG/5 ML SYR ONE (11:00)
[2016-12-15] MEDS ORDERED: GLYCOPYRROLATE INJ 0.2 MG/ML VIAL ONE ×2 (11:00)
[2016-12-15] MEDS ORDERED: ONDANSETRON INJ 2 MG/ML 2 ML VIAL ONE ×2 (11:00)
[2016-12-15] MEDS ORDERED: DEXAMETHASONE SOD INJ 4 MG/ML VIAL ONE (11:00)
[2016-12-15] MEDS ORDERED: TISSEEL FIBRIN SEALANT 4ML TOP ONE (11:34)
--- NOTE | 2016-12-15 12:39 | [facility] Post Operative Brief Note ---
Immediate Operative Summary Operative Date Dec 15, 2016. Pre-Operative Diagnosis Menorrhagia Post-Operative Diagnosis Menorrhagia, pelvic adhesions Procedure(s) Performed Robotic Assisted Total Laparoscopic Hysterectomy, right salpingectomy, Cystoscopy, lysis of adehesions Surgeon Dr. Estuardo Herron Chlorobutadiene Scrubber Operator Surgeon(s) Dr. Fabi Cody Estimated Blood Loss 80mL Findings Significant intra-peritoneal adhesive disease Specimens A: Cervix; Uterus; Right Fallopian Tube Drains Stanley Anesthesia General Complication(s) None Disposition Recovery Room / PACU
--- NOTE | 2016-12-15 12:40 | Discharge Instructions ---
Discharge Instructions Date of Service Dec 15, 2016. Admission Reason for Admission: Menorrhagia Discharge Discharge Diagnosis / Problem: menorrhagia Discharge Goals Goal(s): Routine recovery after surgery Activity Recommendations Activity Limitations: per Instructions/Follow-up section . Instructions / Follow-Up Instructions / Follow-Up POST OPERATIVE: BOWEL FUNCTION/MEDICATIONS: 1. Constipation pain and discomfort are the most common complaints 5-7 days after surgery. Points 2-6 address the things that can help. 2. Chewing gum can help stimulate the gut and help improve digestion and motility. 3. Milk of Magnesia 1-2 times per day until return of bowel function. 4. Colace is a stool softener that helps. Taking this 2-3 times per day until bowel function returns to normal is highly recommended. 5. Dulcolax is a laxative that may be used if several days have passed without a bowel movement. Alternatively Miralax may be used daily instead. 6. Drink plenty of fluids as this will also reduce constipation. 7. Narcotic pain medications will be prescribed by your physician. They are safe to use and we encourage you to use them. If you are not allergic, ibuprofen will also be prescribed. Many patients will be able to transition off of the narcotic medications to ibuprofen by postoperative day 3. ACTIVITY RECOMMENDATIONS: 1. Get plenty of rest and listen to your body. If you are tired, take a nap. 2. You may shower, but do not take a tub bath until you see your doctor at the 2 week post operative visit. 3. Absolutely NO intercourse and nothing in the vagina until you are examined by your doctor at the 6 week visit. At that visit it will be determined when such activities can be resumed. This can range from 6-12 weeks after your surgery depending on healing time. 4. The main physical activity in the first week should be walking. By the second week you can slowly increase activity. There are no limits on walking up and down stairs. 5. Do not lift more than 5-10 lbs for 4 weeks. Remember the "one-handed rule", i.e. if you can lift something with only one hand it's likely okay. 6. Minimize architectural practice manager like vacuuming and exercising for 4 weeks. "Overdoing it" can lead to incisions not healing, pain and vaginal bleeding , so again, listen to your body. 7. Driving can be resumed when you feel able. Do not drive within 24 hours of taking a narcotic medication. EXPECTATIONS: 1. Vaginal spotting, bleeding and discharge are common after surgery. There may even be an odor to the discharge which is often related to sutures used in the vagina. If you experience heavy vaginal bleeding, call the office number day or night [phone]. 2. Bladder discomfort is common after surgery from the catheter. This usually resolves in 1-2 weeks. 3. By the end of the 3rd or 4th week you should be feeling much better. It may take up to 6 weeks for your energy levels to return to normal. 4. Narcotic medications have side effects such as: dizziness, headache, nausea and/or vomiting. If you suspect your pain medication is causing problems, call our office and we may be able to prescribe an alternate medication. 5. The skin incisions are often covered with a liquid bandage. This will gradually peel off over time. CALL THE OFFICE IF YOU HAVE ANY OF THE FOLLOWIN. Temperature of 101 degrees or higher. 2. Severe abdominal or pelvic pain not relieved by pain medication. 3. Persistent nausea or vomiting. 4. Increased pain with urination or difficulty urinating. 5. Bright red bleeding that soaks more than 1 pad per hour. CONTACT PHONE NUMBERS: Main Office: [phone] Surgical Nurse: [phone] extension [phone] Avoid all tobacco products. If you need help to stop smoking, call [place]'s FREE QUITLINE at . This is a free call. Current Hospital Diet Patient's current hospital diet: Discharge Diet Recommended Diet: Regular Diet Procedures Procedures Performed: Robotic Assisted Total Laparoscopic Hysterectomy, right salpingectomy, Cystoscopy, lysis of adehesions Pending Studies Studies pending at discharge: no Laboratory Results Hemoglobin A1c Test 10/31/16 08:40 Range/Units Estimated Average Glucose 123 mg/dl Hemoglobin A1c 5.9 H 4.5-5.6 % Lipid Panel Test 10/31/16 08:40 Range/Units Triglycerides Level 70 0-150 mg/dl Cholesterol Level 128 0-200 mg/dl HDL Cholesterol 44 mg/dl Cholesterol/HDL Ratio 2.9 LDL Cholesterol, Calculated 70 mg/dl Medical Emergencies . Who to Call and When: Medical Emergencies: If at any time you feel your situation is an emergency, please call 911 immediately. . Non-Emergent Contact Non-Emergency issues call your: [employer] . . "Provider Documentation" section prepared by Angel Herron. VTE Core Measure Inpt VTE Proph given/why not?: Khalida Pelletier, SCD's
[2016-12-15] MEDS ORDERED: MTR600X PO (12:41)
[2016-12-15] MEDS ORDERED: OXYC-57 PO (12:41)
[2016-12-15] MEDS ORDERED: MEPERIDINE HCL 75 MG/ML CARP IV PRN (12:45)
[2016-12-15] MEDS ORDERED: PROMETHAZINE HCL INJ 25 MG in SODIUM CHLORIDE 0.9% 50ML 50 ML IV PRN (12:45)
[2016-12-15] MEDS ORDERED: KETOROLAC TROMETHAMINE 30 MG/ML VIAL IV. PRN (12:45)
[2016-12-15] MEDS ORDERED: MAGNESIUM HYDROXIDE SUSP 30 ML UDC PO PRN (12:45)
[2016-12-15] MEDS ORDERED: OXYCODONE/ACETAMINOPHEN 5-325 TAB PO PRN ×2 (12:45)
[2016-12-15] MEDS ORDERED: MEPERIDINE HCL 50 MG/ML CARP IV PRN (12:45)
[2016-12-15] MEDS ORDERED: BISACODYL 10 MG SUPP PR PRN (12:45)
[2016-12-15] MEDS ORDERED: IBUPROFEN 600 MG TAB PO PRN (12:45)
[2016-12-15] MEDS ORDERED: PROMETHAZINE HCL INJ 12.5 MG in SODIUM CHLORIDE 0.9% 50ML 50 ML IV PRN (12:45)
[2016-12-15] MEDS ORDERED: IV FLUIDS COMPLETED PRN (12:45)
[2016-12-15] MEDS ORDERED: ACETAMINOPHEN 325 MG TAB PO PRN (12:45)
[2016-12-15] MEDS ORDERED: ALBUTEROL HFA INHALER 8.5 GM INH ONE (13:08)
[2016-12-15] MEDS: FENTANYL CITRATE INJ 50 MCG/1 ML 2 ML VIAL IV PRN ×4 (13:15→13:30)
--- NOTE | 2016-12-15 13:39 | Anesthesiology Progress Note ---
Anesthesia Post Op Note Date & Time Dec 15, 2016 at 13:39 Vital Signs Pain Intensity: 2 Vital Signs Past 12 Hours Date Time Temp Pulse Resp B/P Pulse Ox O2 Delivery O2 Flow Rate FiO2 12/15/16 13:30 36.3 80 16 12/15/16 13:30 79 16 139/89 98 12/15/16 13:25 77 13 164/88 97 12/15/16 13:25 78 13 12/15/16 13:20 75 19 140/91 97 12/15/16 13:20 75 19 12/15/16 13:15 81 17 12/15/16 13:15 83 17 152/83 97 12/15/16 13:10 82 18 148/94 99 12/15/16 13:10 83 18 12/15/16 13:06 145/90 12/15/16 13:00 36.3 83 16 154/83 99 Mask 10 12/15/16 08:40 71 14 97 Room Air 12/15/16 08:04 36.9 71 20 137/76 98 Room Air Notes Mental Status: alert / awake / arousable, participated in evaluation Pt Amnestic to Procedure: Yes Nausea / Vomiting: adequately controlled Pain: adequately controlled Airway Patency, RR, SpO2: stable & adequate BP & HR: stable & adequate Hydration State: stable & adequate Anesthetic Complications: no major complications apparent
[2016-12-15] MEDS ORDERED: LACTATED RINGER'S 1000ML 1,000 ML IV SCH (15:00)
--- NOTE | 2016-12-15 17:52 | OPERATIVE REPORT ---
DATE OF OPERATION: 12/15/2016 PREOPERATIVE DIAGNOSIS: Menorrhagia. POSTOPERATIVE DIAGNOSES: Menorrhagia, pelvic adhesions. PROCEDURES: Robotically assisted total laparoscopic hysterectomy, right salpingo-oophorectomy, cystoscopy and lysis of adhesions. SURGEON: Dr. Herron. HORSE RACING ANALYST: Dr. Cody. ESTIMATED BLOOD LOSS: 80 mL. FINDINGS: Significant intraperitoneal adhesive disease. SPECIMENS: Cervix, uterus and portion of right fallopian tube. DRAINS: Stanley catheter. ANESTHETIC: General. COMPLICATIONS: None. DISPOSITION: Recovery room. CLINICAL NOTE: Reviewed prior to the surgery. The patient had significant risk for the surgery including morbid obesity. Three prior sections as well. She was given preoperative antibiotics and we did discuss potential for intraoperative complications due to her body habitus and prior C-sections including internal organ injury. PROCEDURE IN DETAIL: The patient taken back to recovery room and timeout performed. She was prepped and draped in dorsal lithotomy position in [facility]. Great care was taken to avoid any excess pressure on her legs and appropriate positioning. Stanley catheter was placed and VCare sewn into her uterus in the usual fashion. We did test Trendelenburg position prior to making incision and the patient tolerated this from a pulmonary point of view. Scalpel was used to make a small incision superior to the umbilicus, dissecting down through the deep subcutaneous fat layer, finding the fascia, cutting this with Metzenbaums, splitting the rectus muscles and entering the peritoneal cavity. Blunt-tipped Alessandra trocar placed, balloon inflated and CO2 gas used to insufflate the abdomen. FINDINGS: Significant anterior abdominal adhesions were noted from prior midline incision for C-sections and significant adhesions of the bowel and omentum were noted, again to the uterus and on the left side of the pelvic sidewall and abdominal sidewall. The patient in Trendelenburg position, 3 robotic ports were then placed under direct visualization, all injected with 0.5% Marcaine and as well the left 11 mm accessory port was placed, bladeless under direct visualization. Robot was then docked. Arm #1 was monopolar vani, arm #2 was bipolar [place], arm #3 was the ProGrasp. Using the VCare, I was able to somewhat manipulate the uterus but somewhat limited due to adhesive disease. We first paid attention to the anterior abdominal adhesions. These were carefully dissected away using the monopolar vani and bipolar [place]. Once these were fully dissected away, I was able to see the pelvis better and then using the manipulator, I was able to sharply dissect away most of the adhesions of the bowel on the uterus and then the majority of them were out to the round ligament on the left side and the left abdominal sidewall. Using great care, we sharply dissected these away with the monopolar vani, using electrosurgery only when necessary. Once that was fully dissected away, it should be pointed out I was able to visualize her left ovary which appeared normal, as did her right ovary and uterus. There were some dense bladder adhesions, but these were likely consistent with 3 prior sections. I was able to see the ureter on the left side transperitoneal and then we coagulated the blood supply distal to the left ovary with the bipolar [place] and cut this with monopolar vani, same process with the round ligament. I was not able to remove the fallopian tube as it was hidden behind adhesions and I felt risk, benefit did not justify this. Uterine artery was skeletonized. There were significant adhesions as well over here. I did not cut the uterine vessels at this stage but I did coagulate them with the bipolar [place], ureter was well away. Same process on the right side, there was less adhesive disease. Once the bladder flap was sharply dissected away, I was finally able to see the bladder cup properly in the correct plane. We were then able to get the uterine vessels on the right side and coagulated these and cut. The ones on the left side were also cut as well. At this stage, I was able to identify the cup. Anterior colpotomy was then performed with the monopolar vani and then we the cervix from the vagina using the monopolar vani, staying medial of our uterine vessel ligations. Uterus was then pulled into the vagina and removed. A sponge and a glove was placed in the vagina for maintenance of pneumoperitoneum. At this stage, hemostasis was good. I did note some mild ooze but nothing out of the ordinary. Instrument exchange occurred. Arm #1 became the mukul needle cement mixer driver, arm #2 became the cobra. Placing through accessory port the 2-0 90-day V-Loc, we then closed the cuff from left to right, back right to left. It should be noted that cuff thickness was very thin and tissue strength seemed poor, as I tried to get certainly deep bites but the bladder flap region, I could not go very much anteriorly as the bladder was densely adhered in this area. We did try to get at least 1 cm bites of vaginal mucosa. I feel the vaginal tissue was somewhat weaker and we will advise her to avoid intercourse for at least 3 months after surgery. Once the cuff was fully closed, suture was cut and then needle removed through the accessory port. The glove had been removed and the seal was airtight. After generous irrigation and suction, we had already given methylene blue and we performed cystoscopy. Cystoscopy revealed a normal bladder. There was no sign of sutures in the bladder, no pathology seen. Good strong jets of urine were seen from both left and right ureter openings. Cystoscope removed and a new Stanley catheter placed. After generous irrigation and suction, we then placed 4 mL of Tisseel into the vascular areas. Hemostasis was excellent at this area but this included the ovarian pedicles, the uterine pedicles and the pelvic sidewalls. At this stage, instruments removed under direct visualization. Robot had been undocked, ports removed, gas allowed to escape. Incisions all injected with 0.5% Marcaine. Fascia closed carefully on the umbilical incision. I inserted several [id number] sutures for this and then subcutaneous fat irrigated and closed with 0 Vicryl. Same process with the left upper quadrant incision, then 4-0 subcuticular Monocryl closures and Dermabond. Sponge and instrument counts correct. I attest to the content of the Intraoperative Record and any orders documented therein. Any exceptions are noted below. LAWRENCE
[2016-12-15] MEDS ORDERED: CEFOXITIN IV 2,000 MG in DEXTROSE 5% 50ML 50 ML IV SCH (20:00)
[2016-12-15] MEDS ORDERED: GENTAMICIN INJ 600 MG in DEXTROSE 5% 100ML 100 ML IV SCH (20:00)
[2016-12-15] MEDS ORDERED: DOCUSATE SODIUM 100 MG CAP PO SCH (20:00)
[2016-12-15] MEDS ORDERED: CLINDAMYCIN IV 600 MG in DEXTROSE 5% ADD-VANTAGE 50ML 50 ML IV SCH (20:00)
[2016-12-15 20:50] LABS: HEMATOCRIT 34.8 % (37-47)
--- NOTE | 2016-12-19 09:50 | DISCHARGE SUMMARY ---
Manda had a total laparoscopic hysterectomy on 12/15/2016. Operative note dictated. Procedure was uncomplicated. Her course in the hospital was simply the day of surgery, she went home in the evening after the morning hysterectomy. At that time she was ambulating, had minimal bleeding, no calf pain, was tolerating an oral diet and pain was well controlled. PHYSICAL EXAMINATION: VITAL SIGNS: Stable. She was afebrile. IMPRESSION AND PLAN: Postop day 0 from her procedure. She was given prescriptions for Percocet and Motrin. Discharge instructions discussed and patient sent home.
== END 2016-12-15 21:15 | disposition home or self-care (01) ==
LOC: ENRESERVTM → ENRESERVDT → C.ACU 07:46 → C.OBG 08:15
PROVIDERS: ADMIT Obstetrics & Gynecology; ATTEND Obstetrics & Gynecology
DX: N92.0 Excessive and frequent menstruation with regular cycle (principal); N73.6 Female pelvic peritoneal adhesions (postinfective)
CPT/HCPCS: 58542; S2900

== ENCOUNTER → 2017-01-20 | Outpatient (CLI) | payer OTHER ==
[~2017-01-20] VITALS: Ht 152.4 cm; Wt 150.9 kg
[~2017-01-20] MED LIST changes: +AZIT500T26 PO; +BENZ1CAP90 PO; -CIPROFLOXACIN / D5W 400 MG IV SCH; -CLINDAMYCIN 600 MG/54 ML D5W 50 ML IV SCH; -LACTATED RINGER'S 1000ML 1,000 ML IV SCH; +MTR600X PO; +OXYC-57 PO; +VNTHFA/IN INH
[2017-01-20 12:36] VITALS: BP 142/85; PULSE 114; Ht 152.4 cm; Wt 150.9 kg
== END | disposition home or self-care (01) ==
LOC: C.NEUR 12:19
PROVIDERS: ATTEND Physician Assistant Medical
DX: R53.83 Other fatigue (principal); R51 Headache; R06.83 Snoring; R06.81 Apnea, not elsewhere classified

== ENCOUNTER → 2017-01-28 | Outpatient (CLI) | payer OTHER ==
--- NOTE | 2017-01-28 14:33 | DIAGNOSTIC IMAGING REPORT ---
RIGHT KNEE 1 OR 2 VIEWS ROUTINE CLINICAL HISTORY: RIGHT KNEE PAIN Right pain COMPARISON: None. DISCUSSION: Moderate degenerative change all major joint compartments. No significant joint effusion. No evidence for fracture or dislocation. No abnormal soft tissue calcifications. There is no evidence for soft tissue swelling. IMPRESSION: Moderate degenerative change all major joint compartments. No acute process. Electronically signed by: Khurram Suero M.D. 01/28/2017 2:32 PM Dictated Date/Time: 01/28/2017 2:32 PM
== END | disposition home or self-care (01) ==
LOC: C.RAD1850 14:19
PROVIDERS: ATTEND Nurse Practitioner
DX: M15.9 Polyosteoarthritis, unspecified (principal); M25.561 Pain in right knee

== ENCOUNTER 2017-02-18 11:10 | Emergency (ER) | payer OTHER ==
[~2017-02-18] VITALS: Ht 152.4 cm; Wt 152.3 kg
[~2017-02-18 11:10] MED LIST changes: -AZIT500T26 PO; -BENZ1CAP90 PO; -VNTHFA/IN INH
[2017-02-18 11:14] VITALS: TEMP 36.7; Ht 152.4 cm; Wt 152.3 kg
--- NOTE | 2017-02-18 12:03 | DIAGNOSTIC IMAGING REPORT ---
CHEST ONE VIEW PORTABLE CLINICAL HISTORY: Cough. COMPARISON STUDY: Chest radiograph and chest CT October 24, 2016. FINDINGS: As before, lung volumes are diminished and there is mild elevation of the right hemidiaphragm. Mild cardiomegaly is noted. There is no evidence of pulmonary edema. There is no consolidation to suggest pneumonia. IMPRESSION: No acute cardiopulmonary findings. Stable cardiomegaly. No change in appearance of the chest. Electronically signed by: Moises Arreola M.D. 02/18/2017 12:01 PM Dictated Date/Time: 02/18/2017 12:01 PM
[2017-02-18] MEDS ORDERED: BENZ1CAP90 PO (12:18)
[2017-02-18] MEDS ORDERED: AZIT500T26 PO (12:18)
--- NOTE | 2017-02-18 12:19 | EMERGENCY ROOM VISIT NOTE ---
History Report prepared by Perla: Keyla Linder Under the Supervision of: Dr. Yifan Christopher D.O. First contact with patient: 11:26 Chief Complaint: CONGESTION Stated Complaint: CHEST TIGHT FROM COUGHING, VOMITING THICK MUCUS Nursing Triage Summary: cold sx with cough " I cough so bad I pee my pants" X 2 days coughing up yellow / green mucus History of Present Illness The patient is a 41 year old female who presents to the Emergency Room with complaints of a worsening productive cough that started 3 weeks ago. The patient states that the cough has been significantly worse yesterday and today. She states that yesterday the cough became productive with green and bitter tasting sputum. The patient states that the cough keeps her from drinking fluids so she thinks that she is dehydrated. The patient also states that she experiences urinary incontinence with coughing. She states that she got the whooping cough vaccine in November. The patient's adds that she had a hysterectomy done on December 15. Source of History: patient Onset: 3 weeks ago Position: chest Quality: other (productive cough) Timing: worsening Associated Symptoms: + urinary symptoms (incontinence with coughing) Review of Systems See HPI for pertinent positives & negatives. A total of 10 systems reviewed and were otherwise negative. Past Medical & Surgical Medical Problems: (1) Arm paresthesia, right (2) Asthma (3) Back pain (4) Blood clots (5) Dyspnea (6) Lumbar back pain (7) Menorrhagia (8) Morbid Obesity (9) Rash and nonspecific skin eruption (10) Stroke (11) Upper respiratory tract infection Surgical Problems: (1) Appendectomy (2) H/O section (3) History of dilatation and curettage Family History Diabetes mellitus Gallbladder disease Heart disease Hypertension Social History Smoking Status: Never Smoker Alcohol Use: none Drug Use: none Marital Status: Housing Status: lives with family Occupation Status: employed, student Current/Historical Medications Scheduled Jgxfjbq-Zokctunekboee-Lceoaahm (Excedrin Extra Strength), 2 TAB PO PRN Venlafaxine Hcl (Effexor Extended Rel), 75 MG PO HS Scheduled PRN Albuterol (Proair Hfa), 2 PUFFS INH Q6H PRN for SOB/Wheezing Ibuprofen (Ibuprofen), 600 MG PO Q6H PRN for Pain,WATERS,cramping,or fever Loratadine (Claritin), 10 MG PO DAILY PRN for ALLERGIC REACTION Oxycodone/Acetaminophen 5MG/325MG (Percocet 5MG/325MG), 1 TAB PO Q4H PRN for Pain (pain scale 1-5) Allergies Coded Allergies: Penicillins (Unverified Allergy, Mild, SOB,FACE SWELLED- A CHILD, ) Molds and Smuts (Unverified Allergy, Unknown, SHORTNESS OF BREATH, 12/15/16 ) Tetanus Toxoid (Unverified Allergy, Unknown, SWELLING AT SITE, 12/15/16) Physical Exam Vital Signs Date Time Temp Pulse Resp B/P (MAP) Pulse Ox O2 Delivery O2 Flow Rate FiO2 02/18/17 11:14 36.7 86 18 134/88 96 Room Air Physical Exam CONSTITUTIONAL/VITAL SIGNS: Reviewed / noted above. GENERAL: Non-toxic in appearance. INTEGUMENTARY: Warm, dry, and [place]. HEAD: Normocephalic. EYES: without scleral icterus or trauma. ENT/OROPHARYNX: clear and moist. LYMPHADENOPATHY/NECK: Is supple without lymphadenopathy or meningismus. RESPIRATORY: Lungs clear and equal. CARDIOVASCULAR: Regular rate and rhythm. GI/ABDOMEN: Soft and nontender. No organomegaly or pulsatile mass. No rebound or guarding. Normal bowel sounds. EXTREMITIES: Warm and well perfused. BACK: No CVA tenderness. NEUROLOGICAL: Intact without focal deficits. PSYCHIATRIC: normal affect. MUSCULOSKELETAL: Normally developed with good muscle tone. Medical Decision & Procedures ER Provider Diagnostic Interpretation: Radiology results as stated below per my review and radiologist interpretation: CHEST ONE VIEW PORTABLE FINDINGS: As before, lung volumes are diminished and there is mild elevation of the right hemidiaphragm. Mild cardiomegaly is noted. There is no evidence of pulmonary edema. There is no consolidation to suggest pneumonia. IMPRESSION: No acute cardiopulmonary findings. Stable cardiomegaly. No change in appearance of the chest. Electronically signed by: Moises Arreola M.D. 02/18/2017 12:01 PM Dictated Date/Time: 02/18/2017 12:01 PM ED Course 1206: Previous medical records were reviewed. The patient was evaluated in room C5. A complete history and physical examination was performed. 1210: After my examination, I discussed the results and findings with the patient. She verbalized agreement of the treatment plan. She was discharged home. Medical Decision The differential was considered includes acute myocardial infarction, acute coronary syndrome, myocarditis, pericarditis, pericardial effusions /tamponad, esophageal perforation, pulmonary embolism, pneumonia, pneumothorax, cardiomyopathy, congestive heart, anemia , COPD/asthma exacerbation. Medication Reconciliation: I attest that I have personally reviewed the patient' s current medication list. Patient was found to have a slightly elevated blood pressure due to circumstances. I do not believe that the patient requires hypertension monitoring. This is a 41-year-old female who presents to the ED with a chief complaint of a cough for the past several weeks. She states that she is coughing up green mucus. She sometimes coughs to the point it causes her to vomit. Her vital signs are normal. Her physical exam was unremarkable. Chest x-ray did not show acute process. The patient will be discharged on Zithromax and Tessalon Perles. She is felt to be stable for discharge. Impression Primary Impression: Acute bronchitis bronchitis Scribe Attestation The scribe's documentation has been prepared under my direction and personally reviewed by me in its entirety. I confirm that the note above accurately reflects all work, treatment, procedures, and medical decision making performed by me. Departure Information Dispostion Home / Self-Care Prescriptions Benzonatate (Tessalon Perles) 200 Mg Cap 200 MG PO Q4H Y for Cough, #20 CAP Prov: Yifan Christopher D.O. 02/18/17 Azithromycin (Zithromax) 500 Mg Tab 500 MG PO DAILY, #7 TAB Prov: Yifan Christopher D.O. 02/18/17 Referrals Luis Miguel Funes M.D. (PCP) Forms HOME CARE DOCUMENTATION FORM, IMPORTANT VISIT INFORMATION Patient Instructions My [facility] Additional Instructions Zithromax and Tessalon Perles as prescribed. Follow-up with your doctor for further care and evaluation in 1 week if symptoms persist. Return to the emergency department for worsening or new symptoms or any concerns. You have been examined and treated today on an emergency basis only. This is not a substitute for, or an effort to provide, complete comprehensive medical care. It is impossible to recognize and treat all injuries or illnesses in a single emergency department visit. It is therefore important that you follow up closely with your doctor. Call as soon as possible for an appointment.
[2017-02-18] MEDS ORDERED: VNTHFA/IN INH (12:25)
[2017-02-18 12:30] VITALS: BP 114/75; PULSE 77; O2SAT 96
== END 2017-02-18 12:33 | disposition home or self-care (01) ==
LOC: C.EDB 11:11 → C.EDC 12:33
DX: J20.9 Acute bronchitis, unspecified (principal); J45.909 Unspecified asthma, uncomplicated; Z86.73 Personal history of transient ischemic attack (TIA), and cerebral infarction without residual deficits; Z90.710 Acquired absence of both cervix and uterus; Z98.891 History of uterine scar from previous surgery; Z90.89 Acquired absence of other organs; Z98.890 Other specified postprocedural states; Z83.3 Family history of diabetes mellitus; Z82.49 Family history of ischemic heart disease and other diseases of the circulatory system

== ENCOUNTER → 2017-10-01 | Outpatient (CLI) | payer OTHER ==
[~2017-10-01] MED LIST changes: -ALBU1AER9 INH; -LORA10TA5 PO; +LORA10TA6 PO; -OXYC-57 PO; +VNTHFA/IN INH
[2017-10-01 13:23] LABS: HEMOGLOBIN A1C 5.2 % (4.5-5.6)
== END | disposition home or self-care (01) ==
LOC: C.LABBFT 10:40
PROVIDERS: ATTEND Internal Medicine
DX: R73.9 Hyperglycemia, unspecified (principal)

== ENCOUNTER → 2017-10-28 | Outpatient (CLI) | payer OTHER | END | disposition home or self-care (01) | LOC: C.LAB1850 07:39 | PROVIDERS: ATTEND Internal Medicine | DX: R73.9 Hyperglycemia, unspecified (principal) ==

== ENCOUNTER → 2018-04-30 | Outpatient (CLI) | payer OTHER ==
[2018-04-30 11:36] LABS: HEMOGLOBIN A1C 5.3 % (4.5-5.6)
[2018-04-30 11:50] LABS: ALBUMIN 3.5 gm/dl (3.4-5.0); ALKALINE PHOSPHATASE 83 U/L (45-117); ALT/SGPT 28 U/L (12-78); AST/SGOT 20 U/L (15-37); BLOOD UREA NITROGEN 9 mg/dl (7-18); CALCIUM 8.4 mg/dl (8.5-10.1); CARBON DIOXIDE 30 mmol/L (21-32); CHOLESTEROL 139 mg/dl (0-200); CREATININE 0.64 mg/dl (0.60-1.20); GLUCOSE 87 mg/dl (70-99); LDL CHOLESTEROL CALCULATED 73 mg/dl; POTASSIUM 3.7 mmol/L (3.5-5.1); SODIUM 138 mmol/L (136-145); TOTAL PROTEIN 7.4 gm/dl (6.4-8.2)
[2018-04-30 16:04] LABS: CREATININE RANDOM URINE 71.8 mg/dl
[2018-05-03 13:49] LABS: MICROSOMAL AB <1 IU/ML (<9)
== END | disposition home or self-care (01) ==
LOC: C.LAB1850 10:34
PROVIDERS: ATTEND Physician Assistant
DX: E11.9 Type 2 diabetes mellitus without complications (principal); E04.1 Nontoxic single thyroid nodule

== ENCOUNTER → 2018-04-30 | Outpatient (CLI) | payer OTHER ==
--- NOTE | 2018-04-30 13:43 | DIAGNOSTIC IMAGING REPORT ---
ULTRASOUND OF THE THYROID GLAND CLINICAL HISTORY: Follow-up thyroid nodule. COMPARISON STUDY: Thyroid ultrasound dated 11/11/2016. TECHNIQUE: Real-time, grayscale, and color flow sonography of the thyroid gland is performed utilizing a high-frequency linear transducer. Images are reviewed in the transverse and longitudinal planes. FINDINGS: Right lobe: The right lobe of the thyroid gland is normal in size and homogeneous in echotexture, measuring 5.1 x 2.2 x 2.0 cm. A hypoechoic nodule in the anterior midpole measures 0.7 x 0.4 x 0.4 cm (previously measured 0.5 x 0.4 x 0.4 cm). Left lobe: The left lobe of the thyroid gland is normal in size and homogeneous in echotexture, measuring 4.4 x 2.1 x 1.5 cm. Isthmus: The thyroid isthmus is normal in appearance and measures 0.4 cm in AP diameter. IMPRESSION: 1. The thyroid gland is normal in size and echotexture. 2. A low suspicion subcentimeter hypoechoic nodule is again seen in the right lobe. Continued follow-up is recommended. Electronically signed by: Srinivas Campuzano M.D. 04/30/2018 1:42 PM Dictated Date/Time: 04/30/2018 1:40 PM
== END | disposition home or self-care (01) ==
LOC: C.ULTR 12:45
PROVIDERS: ATTEND Physician Assistant
DX: E04.1 Nontoxic single thyroid nodule (principal)

== ENCOUNTER 2021-03-11 05:10 | Observation (INO) ==
--- NOTE | 2021-02-28 10:30 | PAT Medication Instructions ---
Medication Instructions Date of Service February 28, 2021 Home Medications Medication Instructions Recorded ibuprofen 600 mg tablet 600 mg PO Q6H PRN #90 tab 05/18/19 nystatin 100,000 unit/gram topical 1 appln TOP TID #60 gm 03/20/20 powder albuterol sulfate 90 mcg/actuation 2 puffs INHALATION QID PRN #8 gm 04/13/20 aerosol inhaler metformin 850 mg tablet 850 mg PO BID #60 tab 09/04/20 rizatriptan 10 mg tablet 10 mg PO Q2H PRN #20 tab 01/09/21 topiramate 25 mg tablet 75 mg PO HS #90 tab 01/28/21 loratadine 10 mg tablet 10 mg PO DAILY PRN ibuprofen 600 mg tablet 600 mg PO Q6H PRN nystatin 100,000 unit/gram topical powder 1 appln TOP TID albuterol sulfate 90 mcg/actuation aerosol inhaler 2 puffs INHALATION QID PRN metformin 850 mg tablet 850 mg PO BID rizatriptan 10 mg tablet 10 mg PO Q2H PRN topiramate 25 mg tablet 75 mg PO HS estradiol 1 mg PO HS montelukast [Singulair] 10 mg PO HS venlafaxine 75 mg PO HS Continue as directed estradiol 1 mg PO HS (unless surgeon directs otherwise) ASK your surgeon for instructions ibuprofen 600 mg tablet 600 mg PO Q6H PRN STOP taking 24 hours before surgery nystatin 100,000 unit/gram topical powder 1 appln TOP TID DO NOT take the morning of surgery loratadine 10 mg tablet 10 mg PO DAILY PRN metformin 850 mg tablet 850 mg PO BID Take morning of surgery With a small sip of water, OTHERWISE NOTHING TO EAT OR DRINK AFTER MIDNIGHT: albuterol sulfate 90 mcg/actuation aerosol inhaler 2 puffs INHALATION QID PRN (use if needed; please bring with you to hospital day of surgery if possible) rizatriptan 10 mg tablet 10 mg PO Q2H PRN (if needed) Take evening before surgery albuterol sulfate 90 mcg/actuation aerosol inhaler 2 puffs INHALATION QID PRN (if needed) metformin 850 mg tablet 850 mg PO BID rizatriptan 10 mg tablet 10 mg PO Q2H PRN (if needed) topiramate 25 mg tablet 75 mg PO HS montelukast [Singulair] 10 mg PO HS venlafaxine 75 mg PO HS Other Notes If you have any questions please call us at [phone] or [phone] or [phone] or [phone]
--- NOTE | 2021-03-05 12:23 | Anesthesiology Consultation ---
Date of Service March 05, 2021 Assessment & Plan (1) Encounter for pre-operative examination: Chart Review Chart Review: Acceptable Risk for Surgery (pending preop Covid testing ) and Patient seen in Pre Admission Testing - Check [facility]G AM DOS Per PAT appt on 03/05/21, patient denies travel. Uses mask. Pt is NOT vaccinated. No known Covid positive contacts or Covid related symptoms. No known Covid in the past 90 days. Preop Covid testing scheduled 03/08/21= will await results. Educated on importance of self quarantining, social distancing and wearing mask in public both for the patient after Covid testing done History Surgery Operation Date: 03/11/21 07:30 Proposed Procedures p Laparoscopic Removal of Left and or Right Ovarian Cyst or Ovary with Possible Need for Open Incision to Remove Ovarian Cyst or Ovary - Michelle Izaguirre, DO s Laparoscopic Cholecystectomy - Nate Miller, DO s Ventral Hernia Repair with Possible Mesh - Nate Miller, DO Height/Weight Height: 5 ft 1 in Weight: 146 kg Allergies Allergy/AdvReac Type Severity Reaction Status Date / Time Penicillins Allergy Mild SOB,FACE Verified 03/04/21 12:44 SWELLED- A CHILD mold Allergy Unknown SHORTNESS Verified 03/04/21 12:44 OF BREATH tetanus toxoid, adsorbed Allergy Unknown SWELLING Verified 03/04/21 12:44 AT SITE Medications Home Medications Medication Instructions Recorded Confirmed Last Taken blood sugar diagnostic #10 ea 04/14/19 03/04/21 Unknown lancets 33 gauge #100 ea 04/14/19 03/04/21 Unknown loratadine 10 mg tablet 10 mg PO DAILY PRN tab 04/14/19 03/04/21 Unknown ibuprofen 600 mg tablet 600 mg PO Q6H PRN #90 tab 05/18/19 03/04/21 Unknown nystatin 100,000 unit/gram topical 1 appln TOP TID #60 gm 03/20/20 03/04/21 Unknown powder albuterol sulfate 90 mcg/actuation 2 puffs INHALATION QID PRN #8 gm 04/13/20 03/04/21 Unknown aerosol inhaler metformin 850 mg tablet 850 mg PO BID #60 tab 09/04/20 03/04/21 Unknown rizatriptan 10 mg tablet 10 mg PO Q2H PRN #20 tab 01/09/21 03/04/21 Unknown topiramate 25 mg tablet 75 mg PO HS #90 tab 01/28/21 03/04/21 Unknown estradiol 1 mg PO HS 02/22/21 03/04/21 Unknown montelukast [Singulair] 10 mg PO HS 02/22/21 03/04/21 Unknown venlafaxine 75 mg PO HS 02/22/21 03/04/21 Unknown Past Medical History Medical History Asthma Well controlled and stable BMI 60.0-69.9, adult Depression Diabetes mellitus, type 2 Prediabetes. lost 40 pounds and HGA1C 5.4 on 01/21/21 Gallstones Migraine headache No recent issues Ovarian cyst Thyroid nodule Under observation- stable in size Exercise / Class Metabolic Activity III < 4 Walking/Shop/Light housework (one flight of stairs - mild SOB, no chest pain ) Past Family History Family History Mother Diabetes Stroke Chronic kidney disease Father Pancreatic cancer Heart failure Diabetes Sister Iron deficiency Denies family history of Ovarian cancer Breast cancer Colorectal cancer Colonic polyp Past Surgical History Surgical History History of appendectomy (01/03/13) History of dilatation and curettage History of hysterectomy rt salpingectomy 2017 History of wisdom tooth extraction Previous section x3 Past Anesthesia History No Hx of Anesthesia Complications (with exception to hysterectomy- slow to wake- groggy- no reintubation or ICU stay ) and No Family Hx of Anesthesia Complicat ions History of PONV No Hx of PONV and No Hx of Motion Sickness Social History Smoking Status: Never smoker Do You Dip or Chew Tobacco: No Hx Alcohol Use: No Hx Substance Use: No substance use type: does not use Review of Systems Snoring- no witnessed apnea - no hx of sleep study Hx of blood transfusion- s/p childbirth x 2 Patient denies chest pain, shortness of breath, dyspnea on exertion, reflux, cough, wheezing, palpitations. No hx of seizures, stroke, NC. No hx of blood clots. Physical Exam Vital Signs VITALS BP 118/75 P 71 TEMP 98.4 SP02 97% RESP 16 Constitutional no acute distress ENMT Mouth: no TMJ clicking Thyromental Distance: < 3.5 Finger Breadths (3.0) Mallampati Class: III Denies loose or missing teeth Neck + short neck and + thick neck; neck extension not limited Respiratory normal respiratory effort; no respiratory distress Auscultation: lungs clear to auscultation bilaterally; no wheezes Cardiovascular Rate/Rhythm: regular rate and regular rhythm Heart Sounds: no murmur Vessels: no carotid bruit Musculoskeletal Spine: no pain with cervical ROM Extremities: extremities normal to inspection Psychiatric Orientation: alert Lab Results Anesthesia Preop Results Results Anesthesia Widget: WBC 8.27 K/uL (4.8-10.8) 03/05/21 Hgb 12.7 g/dL (12.0-16.0) 03/05/21 Hct 37.9 % (37-47) 03/05/21 Plt 264 K/uL (130-400) 03/05/21 Na 141 mmol/L (136-145) 03/05/21 K 3.4 mmol/L (3.5-5.1) L 03/05/21 Cl 109 mmol/L (98-107) H 03/05/21 CO2 29 mmol/L (21-32) 03/05/21 BUN 11 mg/dl (7-18) 03/05/21 Creat 0.67 mg/dl (0.6-1.2) 03/05/21 Glucose Level 95 mg/dl (70-99) 03/05/21 HA1c 5.4 % (4.5-5.6) 01/21/21 Urine Color Yellow 03/05/21 Urine Appearance Cloudy (Clear) A 03/05/21 Urine pH 7.0 (4.5-7.5) 03/05/21 Urine Specific Welches 1.021 (1.000-1.030) 03/05/21 Urine Protein Negative (Negative) 03/05/21 Urine Glucose (UA) Negative (Negative) 03/05/21 Urine Ketones Negative (Negative) 03/05/21 Urine Blood Negative (Negative) 03/05/21 Urine Nitrite Negative (Negative) 03/05/21 Urine Bilirubin Negative (Negative) 03/05/21 Urine Urobilinogen Negative (Negative) 03/05/21 Urine Leukocyte Esterase Negative (Negative) 03/05/21 Urine WBC (Auto) 5-10 /hpf (0-5) H 03/05/21 Urine RBC (Auto) 0-4 /hpf (0-4) 03/05/21 Urine Hyaline Casts (Auto) 1-5 /lpf (0-5) 03/05/21 Urine Epithelial Cells (Auto) >30 /lpf (0-5) H 03/05/21 Urine Bacteria (Auto) Negative (Negative) 03/05/21 Urine Yeast Not Reportable 03/05/21 Blood Type O Positive 03/05/21 Antibody Screen NEGATIVE 03/05/21 Testing Laboratory Results 01/21/21= HGB A1C: 5.4 Electrocardiogram Date: 03/05/21 Findings: + NSR @ (64bpm) Low voltage QRS Possible inferior infarct (cited on or before December 08, 2016) When compared to EKG from December 08, 2016no significant changes found per cardio. Echocardiogram Date: 12/12/16 EF: 55% LV Function: Low normal Other Findings: + diastolic dysfunction (Type II); no LVH Valvular Disease: + no significant valvular disease Ordered by Jerzy Wade secondary to abnormal EKG No definite regional wall motion abnormalities (cannot rule out mild hypokinesis in the inferior wall given poor image quality, but inferior wall appears normal in short axis imaging). RV not well visualized but appears mildly dilated in some images with normal systolic function. Mild IL.
[2021-03-11] MEDS ORDERED: CIPROFLOXACIN / D5W 400 MG/200 ML BAG IV SCH (06:00)
[2021-03-11] MEDS ORDERED: LR 15ML/HR IV SCH (06:00)
[2021-03-11] MEDS ORDERED: ONDANSETRON INJ 2 MG/ML 2 ML VIAL ONE ×2 (06:39→08:43)
[2021-03-11] MEDS ORDERED: LIDOCAINE 2% 2 ML VIAL/AMP(20MG/ML) INFIL ONE (06:39)
[2021-03-11] MEDS ORDERED: PROPOFOL IV EMULSION 10 MG/ML 20 ML VIAL IV ONE ×2 (06:39→08:43)
[2021-03-11] MEDS ORDERED: DEXAMETHASONE SOD INJ 4 MG/ML VIAL ONE (06:39)
[2021-03-11] MEDS ORDERED: fentaNYL citrate 100 MCG/2 ML VIAL ONE ×3 (06:40→09:16)
[2021-03-11] MEDS ORDERED: MIDAZOLAM HCL 1 MG/ML 2ML VIAL ONE (06:40)
--- NOTE | 2021-03-11 06:58 | History & Physical Bridge Note ---
Date of Service March 11, 2021 History & Physical Bridge Note I have examined the patient, reviewed the History & Physical and in the interval since the performance of the History & Physical I have noted the following changes of clinical significance: no changes noted - plan for ovarian cystectomy, per consent right or left, possible removal of ovary.
[2021-03-11] MEDS ORDERED: BUPIVACAINE/EPINEPHRINE 0.5% MPF 1:200,000 30 ML VIAL ONE (06:59)
[2021-03-11] MEDS ORDERED: BUPIVACAINE 0.5 % 5 MG/1 ML MPF 30ML VIAL ONE (07:00)
[2021-03-11] MEDS ORDERED: SUCCINYLCHOLINE CHLORIDE 20 MG/ML 10 ML VIAL IV ONE (08:43)
[2021-03-11] MEDS ORDERED: GLYCOPYRROLATE 0.2 MG/ML VIAL ONE (08:43)
[2021-03-11] MEDS ORDERED: NEOSTIGMINE METHYLSULFATE 1 MG/ML 10ML VIAL ONE (08:43)
[2021-03-11] MEDS ORDERED: ePHEDrine sulfate 50 MG/ML SYR ONE (08:43)
[2021-03-11] MEDS ORDERED: CISATRACURIUM BESYLATE IV SOLN 2 MG/ML 10 ML VIAL IV ONE (08:43)
--- NOTE | 2021-03-11 08:48 | Operative Report ---
PG Post Operative Report Pre & Post Diagnosis Operation Date: 03/11/21 07:00 Pre-Op Diagnosis: Right Adnexal Cyst, Cholecystectomy, Ventral hernia Post-Op Diagnosis: Right Adnexal Cyst, Cholecystectomy, Ventral hernia I identified the patient and participated in the time-out.: Yes Procedure Operation Date: 03/11/21 07:00 Actual Procedures p Laparoscopic Removal of Right Adnexal Cyst(Right) - Michelle Izaguirre, s Laparoscopic Cholecystectomy(Not Applicable) - Nate Miller, s Open Ventral Hernia Repair with Possible Mesh(Not Applicable) - Nate Miller DO Surgeon Michelle Izaguirre, Spiral Machine Operator Dr Nate Miller, Dr Rubi Tanner Estimated Blood Loss 5 Findings Consistent with Post-Op Diagnosis Pelvic adhesive disease, simple-appearing right adnexal cyst, adhered to pelvic sidewall, straw-colored fluid Specimens right adnexal cyst Drains vazquez, clear yellow Anesthesia Type General Complications none Disposition Accompanied Patient To Recovery: No Disposition: Recovery Room Indications 45yo with history of multiple abdominal surgeries, presented to me with RLQ pain and right simple-appearing adnexal cyst on imaging. Also in need of removal of gallbladder and repair of supraumbilical hernia - case performed in coordination with Dr Miller. Description of Procedure This operative report covers removal of adnexal portion of surgery, please see Dr. Miller's report for documentation of the rest of the case. Patient was seen in the preoperative holding area, all risks benefits and alternatives to surgery reviewed. She elected to proceed with the case. She had previously signed informed consent under no duress in the office. All ques tions were answered. She was taken to the operating room, general anesthesia was administered. She was prepared and draped in the usual sterile fashion with feet in yellowfin stirrups in the dorsolithotomy position. Timeout was confirmed. A Vazquez catheter was placed in the bladder, a sponge stick was placed in the vagina for manipulation. Gloves were changed and attention was then turned to the abdomen. Dr. Miller performed open entry to place a supraumbilical trocar. The camera was inserted, the pelvis was visualized. The patient was placed in steep Trendelenburg position. There were multiple pelvic adhesions, bowel and omentum to anterior aspect of abdominal wall. Bilateral trochars were placed. The adnexal cyst was visualized, it appeared simple in nature. It was adhered to the pelvic sidewall, above the location of ovary. Given her prior surgeries, it was difficult to determine if this was originally part of the broad ligament/fallopian tube complex, or if it was a peritoneal inclusion cyst. Due to extensive adhesive disease, ureters bilaterally were not visible, however given location of the cyst anterior to the ovary, ureter was presumed to be distant. The cyst wall was entered, straw-colored fluid spilled into the pelvis. This was suctioned and irrigated. The cyst was then removed in its entirety from its attachments using harmonic scalpel. Excellent hemostasis was observed. The cyst was removed in 2 pieces, labeled adnexal cyst and sent to pathology as one specimen. Attempt was made to visualize the left ovary, this was not seen due to adhesive disease. The case was then turned over to Dr. Miller for the remainder of the surgical procedures. The patient tolerated the procedure well. I spoke with her daughter at the conclusion of the case to give her an update. I attest to the content of the Intraoperative Record and any orders documented therein. Any exceptions are noted below. UTILITY LOCATOR Major Procedure Codes Laparotomy/Laparoscopic [address] [facility] Ov Cystectomy
[2021-03-11] MEDS ORDERED: SURGICEL ABSORB HEMOSTAT 2IN X 14IN TOP ONE (08:57)
[2021-03-11] MEDS ORDERED: PROMETHAZINE HCL 12.5 MG in SODIUM CHLORIDE 0.9% 50 ML IV PRN (09:25)
[2021-03-11] MEDS ORDERED: LABETALOL HCL IV 5 MG/ML 20ML IV PRN (09:25)
[2021-03-11] MEDS ORDERED: FLUMAZENIL 0.1 MG/1 ML 10 ML VIAL IV PRN (09:25)
[2021-03-11] MEDS ORDERED: ePHEDrine sulfate 50 MG/ML AMP IV PRN (09:25)
[2021-03-11] MEDS ORDERED: ATROPINE SULFATE 0.1 MG/ML 10ML SYR IV PRN (09:25)
[2021-03-11] MEDS ORDERED: NALOXONE HCL 0.4 MG/1 ML VIAL/CARP IV PRN (09:25)
[2021-03-11] MEDS ORDERED: ONDANSETRON INJ 2 MG/ML 2 ML VIAL IV PRN ×2 (09:25→09:33)
[2021-03-11] MEDS ORDERED: MoRPHine SULFATE 4 MG/ML 1 ML CARP\\VIAL IV PRN (09:33)
[2021-03-11] MEDS ORDERED: MoRPHine SULFATE 2 MG/ML CARP IV PRN (09:33)
[2021-03-11] MEDS ORDERED: HYDROCODONE/ACETAMOPHEN 5/325MG TAB PO PRN (09:33)
[2021-03-11] MEDS ORDERED: SODIUM CHLORIDE 0.9% 1000ML 1,000 ML IV SCH (09:45)
--- NOTE | 2021-03-11 09:57 | Operative Report ---
PG Post Operative Report Pre & Post Diagnosis Operation Date: 03/11/21 07:00 Pre-Op Diagnosis: Right Adnexal Cyst, Cholecystectomy, Ventral hernia Post-Op Diagnosis: Right Adnexal Cyst, Cholecystectomy, Ventral hernia; adhesions I identified the patient and participated in the time-out.: Yes Procedure Operation Date: 03/11/21 07:00 Actual Procedures p Laparoscopic Removal of Right Adnexal Cyst(Right) - DO panda Andres Laparoscopic Cholecystectomy(Not Applicable) - DO panda Malik Open Ventral Hernia Repair (Not Applicable) s enterolysis- Nate Miller DO Surgeon Nate Miller DO Supervisor Cleaning And Annealing Dr Nate Miller, Dr Rubi Tanner Estimated Blood Loss 15 Findings Consistent with Post-Op Diagnosis Specimens gallbladder Anesthesia Type General Complications none Disposition Accompanied Patient To Recovery: No Disposition: Recovery Room Description of Procedure After informed consent was obtained the patient was taken to the operating room and placed in supine position. After successful intubation the patient was placed in a high lithotomy position. The abdomen was sterilely prepped and draped in usual fashion. I began by making an elliptical incision around her supraumbilical scar overlying her palpable hernia defect. The skin was removed and her old scar and discarded. We then carried this incision down to the fascia using traction countertraction and cautery. I readily encountered a hernia sac which I excised in 360 degrees. This exposed some omentum and small bowel within the hernia defect. I used small amounts of scissor lysis finger fractionation and small amount of cautery to take the adhesions down. I was then able to reduce the contents of the hernia. I used 0 Vicryl to temporarily decrease the size of the defect with simple interrupted sutures. A 12 mm trocar was advanced into the hernia defect and the balloon inflated. We then insufflated the abdomen to [address] Izaguirre's dictation for this initial part of the procedure which included a laparoscopic right adnexal cystectomy. When she completed her portion of the case we then placed the patient into a reverse Trendelenburg position and slightly airplaned to the left. A 5 mm subxiphoid trocar was placed and I did add an additional right upper quadrant trocar. We were able to use the patient's right lower quadrant 8 mm trocar placed by Dr. Izaguirre. the gallbladder was grasped and elevated superiorly and laterally. There were some adhesions in the upper abdomen involving omentum colon and liver and these were taken down using the harmonic scalpel as well. We then took adhesions down around the neck of the gallbladder. I was able to identify and skeletonize the cystic duct which was clipped twice proximally and once distally and transected. In similar fashion the cystic artery was identified skeletonized clipped and divided. Cautery was then used to remove the gallbladder from the gallbladder fossa. It was quite intrahepatic. Small amount of bile leakage occurred during this process. Once we had the gallbladder removed it was placed into an Endo Catch bag and removed from the abdomen. We then thoroughly irrigated the right upper quadrant. There were several small bleeding points on the gallbladder fossa which were controlled using cautery. A piece of Surgicel was also placed in the gallbladder fossa for postoperative hemostasis assistance. At the end of the procedure there was no evidence of a bile leak and there was adequate hemostasis. No other abnormalities were identified. The trochars were all removed and the abdomen desufflated. We then skeletonized the fascia of the supraumbilical hernia. The previously placed 0 Vicryl's were removed. After skeletonizing the defect in 360 degrees I used #1 Ethibond in simple interrupted fashion to primarily close the defect. Because of the spillage I opted to not use mesh for fear of infecting it. The hernia defect closed relatively easily with minimal tension. I then thoroughly irrigated this wound and closed in multiple layers using 2-0 Vicryl for deep layers and 4-0 Monocryl for skin. The other trocar sites were all removed using 4-0 Monocryl. Marcaine with epinephrine were injected around all them for postoperative analgesia and skin glue used as a dressing. The patient was awakened extubated transferred recovery in stable condition. My physician plumber assistant was present for the entire case. He was instrumental in exposure during my portion of the case as well as with running the camera wound closure and dressing placement. I attest to the content of the Intraoperative Record and any orders documented therein. Any exceptions are noted below.
[2021-03-11] MEDS: fentaNYL citrate 100 MCG/2 ML VIAL IV PRN ×2 (10:17→10:23)
--- NOTE | 2021-03-11 10:50 | Anesthesiology Progress Note ---
Date of Service March 11, 2021 Anesthesia Post Procedure Vital Signs Vital Signs: Temp Pulse Pulse Resp BP BP Pulse Ox 03/11/21 10:40 36.2 C L 73 18 122/78 98 03/11/21 10:30 73 18 105/71 97 03/11/21 10:20 71 16 101/69 95 03/11/21 10:10 76 16 142/72 H 93 03/11/21 10:00 83 14 147/76 H 93 03/11/21 09:53 36 C L 90 14 130/80 92 03/11/21 05:36 36.6 C 65 20 136/85 96 Transfer of Care Handoff Completed per policy Notes Mental Status: alert / awake / arousable Patient Amnestic to Procedure: Yes Nausea / Vomiting: adequately controlled Pain: adequately controlled Airway Patency, RR, SpO2: stable & adequate BP & HR: stable & adequate Hydration State: stable & adequate Anesthetic Complications: no major complications apparent
[2021-03-11] MEDS ORDERED: KETOROLAC 30 MG/ML VIAL IV ONE (11:46)
[2021-03-11] MEDS ORDERED: IBUPROFEN 600 MG TAB PO PRN (13:38)
[2021-03-11] MEDS ORDERED: ALBUTEROL HFA 8 GM INHALER INH PRN (13:38)
[2021-03-11] MEDS ORDERED: GLUCAGON FOR INJ 1 MG VIAL SQ PRN (13:38)
[2021-03-11] MEDS ORDERED: CARBOHYDRATES FOR HYPOGLYCEMIA PO PRN (13:38)
[2021-03-11] MEDS ORDERED: GLUCOSE 10 TABS/TUBE PO PRN (13:38)
[2021-03-11] MEDS ORDERED: DEXTROSE 50% 50 ML SYRINGE IV PRN (13:38)
[2021-03-11] MEDS ORDERED: RIZATRIPTAN BENZOATE 10 MG TAB PO PRN (13:38)
[2021-03-11] MEDS ORDERED: GLUCOSE 40% GEL 15 GM TUBE PO PRN (13:38)
[2021-03-11] MEDS ORDERED: MONTELUKAST SODIUM 10 MG TABLET PO PRN (13:38)
[2021-03-11] MEDS: NYSTATIN POWDER 15GM BTL EXT SCH ×2 (15:20→19:50)
[2021-03-11] MEDS: HYDROCODONE/ACETAMOPHEN 5/325MG TAB PO PRN (15:24)
[2021-03-11] MEDS: LACTATED RINGER'S 1,000 ML IV SCH (15:24)
[2021-03-11] MEDS: INSULIN ASPART 100 UNITS/ML 3 ML PEN SC SCH ×2 (17:40→20:52)
[2021-03-11] MEDS: HYDROmorphone INJ 0.5 MG/0.5 ML SYR IV PRN ×2 (18:33→22:23)
[2021-03-11] MEDS ORDERED: VENLAFAXINE HCL XR 75 MG CAPXR PO SCH (21:00)
[2021-03-11] MEDS ORDERED: TOPIRAMATE 25 MG TAB PO SCH (21:00)
[2021-03-11] MEDS ORDERED: estradioL 1 MG TAB PO SCH (21:00)
[2021-03-12] MEDS: LACTATED RINGER'S 1,000 ML IV SCH (02:19)
[2021-03-12] MEDS: HYDROmorphone INJ 0.5 MG/0.5 ML SYR IV PRN ×2 (02:19→05:54)
--- NOTE | 2021-03-12 09:03 | Surgery Progress Note ---
Date of Service March 12, 2021 Assessment & Plan (1) Periumbilical hernia: POD 1 lap cory, adnexal cyst, umbilical hernia repair ok for d/c if tolerates breakfast and [place] Admission and Anticipated Discharge Date Admission Date: March 11, 2021 Subjective feeling better, tolerating diet, hasn't tried [place] Physical Exam Gastrointestinal (Abdomen): Percussion/Palpation: abdomen soft Results & Data ([facility]) Vital Signs (Past 12 Hours) Vital Signs Temp Pulse Pulse Resp BP BP Pulse Ox 03/12/21 08:28 36.7 C 82 16 101/72 95 03/12/21 03:59 36.8 C 83 17 106/65 93 03/11/21 23:25 36.8 C 93 H 22 91/57 L 90 PG Care Time/CCT Total # of Minutes Spent Total Time Spent with Patient: Total time spent is greater than 50% in coordination of care (as documented) at patient's floor/unit and/or counseling patient: Coding Level of Care Code None Diagnoses Periumbilical hernia K42.9
[2021-03-12] MEDS: INSULIN ASPART 100 UNITS/ML 3 ML PEN SC SCH ×2 (09:10→13:26)
[2021-03-12] MEDS: NYSTATIN POWDER 15GM BTL EXT SCH (09:12)
[2021-03-12] MEDS: HYDROCODONE/ACETAMOPHEN 5/325MG TAB PO PRN (13:19)
--- NOTE | 2021-03-13 14:03 | Discharge Summary ---
Date of Service March 13, 2021 Principal Diagnosis Symptomatic cholelithiasis Ventral hernia Adnexal cyst Discharge Exam Constitutional WD/WN, vitals as above Gastrointestinal (Abdomen) Inspection/Auscultation: + abdominal surgical incision (dry); abdomen not distended Percussion/Palpation: abdomen soft Discharge Data Allergies Allergy/AdvReac Type Severity Reaction Status Date / Time Penicillins Allergy Mild SOB,FACE Verified 03/11/21 05:40 SWELLED- A CHILD mold Allergy Unknown SHORTNESS Verified 03/11/21 05:40 OF BREATH tetanus toxoid, adsorbed Allergy Unknown SWELLING Verified 03/11/21 05:40 AT SITE Procedures Performed Operation Date: 03/11/21 07:00 Actual Procedures p Laparoscopic Removal of Right Adnexal Cyst(Right) - DO panda Andres Laparoscopic Cholecystectomy(Not Applicable) - DO panda Malik Open Ventral Hernia Repair (Not Applicable) - Nate Miller DO Hospital Course (1) Gallstones: 45 y/o female was taken to the operating room for laparoscopic cholecystectomy, removal of adnexal cyst and open ventral (umbilical) hernia repair as planned outpatient procedures. While in recovery she continued to require IV analgesics and had some hypotension. She was therefore transferred to the surgical floor for overnight observation. In the morning she was able to advance diet and transition to oral analgesics and was stable for discharge home. Total Time Total Time Spent Total Time Spent (In Minutes): 10 Discharge Plan Discharge Items Patient Disposition: Home - Self-Care Reason For Visit: CHOLELITHIASIS Discharge Diagnosis: Laparoscopic cholecystectomy Cyst removal hernia repair Activity: As commented below Lifting: No more than 10 pounds Bathing Comment: ok to shower over skin glue Non-emergency contact: Surgeon Call non-emergency contact if: you have any medication questions, your pain is not controlled, you have a fever, your temperature is above 101.5 and your wound has increased redness Follow-up/Referrals: Phan Funes MD [Primary Care Provider] - Michelle Izaguirre DO [Physician] - 03/27/21 1:00 pm (As planned) Nate Miller DO [Surgeon] - 03/25/21 9:30 am (In 2 weeks as planned or call if you have any questions) Diet: Regular and Carb Consistent or DM2 Addtl Attending Provider Instructions: Pending Studies at Discharge: No Stand-Alone Forms: My [facility], Opioid Pain Management Medications and DC Order Prescriptions: New hydrocodone-acetaminophen 5-325 mg tablet 1 - 2 tab PO .Q4-6h MDD 6 tabs PRN (Reason: pain, initial therapy) Qty: 15 RF: 0 Continued metformin 850 mg tablet 850 mg PO BID Qty: 60 RF: 5 rizatriptan [Maxalt] 10 mg tablet 10 mg PO Q2H PRN (Reason: migraine headache) Qty: 20 RF: 5 albuterol sulfate 90 mcg/actuation HFA aerosol inhaler 2 puffs inhalation QID PRN (Reason: asthma) Qty: 8 RF: 5 topiramate 25 mg tablet 75 mg PO HS Qty: 90 RF: 1 nystatin 100,000 unit/gram powder 1 appln TOP TID Qty: 60 RF: 5 (DME) lancets [OneTouch Delica Lancets] 33 gauge misc See Dose Instructions .ROUTE .MEDSUPPLY Qty: 100 RF: 0 (DME) OneTouch Verio test strips strip See Dose Instructions .ROUTE .MEDSUPPLY Qty: 10 RF: 0 loratadine 10 mg tablet 10 mg PO DAILY PRN (Reason: Allergy Symptoms) RF: 0 ibuprofen 600 mg tablet 600 mg PO Q6H PRN (Reason: pain) Qty: 90 RF: 3 venlafaxine 75 mg capsule,extended release 24hr 75 mg PO HS RF: 0 estradiol 1 mg tablet 1 mg PO HS RF: 0 montelukast [Singulair] 10 mg tablet 10 mg PO HS PRN (Reason: Allergy Symptoms) RF: 0 Discharge Orders: Discharge Order (Routine); Ordered 03/12/21 Ordered By: Salvatore Marcus Admission Data Admit Date/Time: 03/11/21 12:06 Attending Provider: Nate Miller Admit Provider: Nate Miller Primary Care Provider: Phan Funes Other Interventions: Discharge Summary Assessment (RN) Last Done: 03/12/21 14:32 Coding Level of Care Code D/C Day Management <30 mins Diagnoses Gallstones K80.20
== END 2021-03-12 15:03 | disposition home or self-care (01) ==
LOC: ASU 05:10 → 3W 05:10